=== PATIENT | female | born 1980 | race Caucasian/White ===

== ENCOUNTER 2016-11-30 08:03 | Emergency (ER) | payer MEDICAID ==
[~2016-11-30] VITALS: Ht 172.7 cm; Wt 68.2 kg
[~2016-11-30 08:03] MED LIST: CITA20TA9 PO; RISP2TAB76 PO
[2016-11-30] MEDS ORDERED: LORazepam 1 MG TABLET PO ONE (08:30)
[2016-11-30] MEDS ORDERED: DiphenhydrAMINE HCL 25 MG CAPSULE PO ONE (08:30)
[2016-11-30] MEDS ORDERED: HALOPERIDOL 5 MG TABLET PO ONE (08:30)
[2016-11-30 08:33] VITALS: BP 122/95
== END 2016-11-30 08:56 | disposition home or self-care (01) ==
LOC: EMS 08:05
DX: F20.9 Schizophrenia, unspecified (principal); F31.9 Bipolar disorder, unspecified; Z88.0 Allergy status to penicillin
CPT/HCPCS: 99284

== ENCOUNTER 2016-12-31 14:44 | Emergency (ER) | payer MEDICAID | END 2016-12-31 16:20 | disposition left against medical advice (07) | LOC: EMS 14:45 | DX: F41.9 Anxiety disorder, unspecified (principal); Z53.21 Procedure and treatment not carried out due to patient leaving prior to being seen by health care provider ==

== ENCOUNTER 2017-01-23 06:36 | Emergency (ER) | payer MEDICAID ==
[~2017-01-23] VITALS: Ht 160 cm; Wt 68.2 kg
[2017-01-23 07:36] LABS: APPEARANCE,URINE CLEAR (CLEAR); GLUCOSE, URINE (UA) NEGATIVE (NEGATIVE); KETONES,URINE NEGATIVE (NEGATIVE); LEUKOCYTE ESTERASE ,URINE NEGATIVE (NEGATIVE); OCCULT BLOOD,URINE TRACE (NEGATIVE); PH,URINE 5.5 (5.0-8.0); PROTEIN,URINE NEGATIVE (NEGATIVE)
[2017-01-23 07:46] LABS: ADD UA MICROSCOPIC YES; RBC,URINE 0-2 /HPF (0-2); WBC,URINE None Seen /HPF (0-5)
[2017-01-23] MEDS ORDERED: RisperiDONE 1 MG TABLET PO ONE (08:15)
[2017-01-23 09:14] VITALS: BP 131/82
== END 2017-01-23 09:16 | disposition home or self-care (01) ==
LOC: EMS 06:37
DX: F25.9 Schizoaffective disorder, unspecified (principal); Z88.0 Allergy status to penicillin
CPT/HCPCS: 99284

== ENCOUNTER 2017-04-04 11:57 | Emergency (ER) | payer MEDICAID ==
[~2017-04-04] VITALS: Ht 172.7 cm; Wt 113.0 kg
[~2017-04-04 11:57] MED LIST changes: +SIMV-259 PO
[2017-04-04 14:00] VITALS: BP 114/82
[2017-04-04] MEDS ORDERED: LORazepam 2 MG TABLET PO ONE (14:15)
[2017-04-04] MEDS ORDERED: RisperiDONE 1 MG TABLET PO ONE (14:30)
== END 2017-04-04 14:42 | disposition home or self-care (01) ==
LOC: EMS 11:59
DX: F20.0 Paranoid schizophrenia (principal); F31.9 Bipolar disorder, unspecified; Z88.0 Allergy status to penicillin
CPT/HCPCS: 99284

== ENCOUNTER 2017-04-06 22:00 | Emergency (ER) | payer MEDICAID ==
[~2017-04-06] VITALS: Ht 172.7 cm; Wt 113.6 kg
[2017-04-06 22:43] LABS: BASOPHILS % (AUTO) 0.3 % (0.0-2.0); EOSINOPHILS % (AUTO) 0.5 % (1.0-6.0); HEMATOCRIT 38.1 % (36-46); HEMOGLOBIN 12.9 g/dL (12.0-16.0); LYMPHOCYTES # (AUTO) 2.2 K/uL (1.0-4.8); LYMPHOCYTES % (AUTO) 28.6 % (22.0-44.0); MEAN CORPUSCULAR HEMOGLOBIN 31.4 pg (26.0-34.0); MEAN CORPUSCULAR VOLUME 92 fL (80-100); MONOCYTES # (AUTO) 0.5 K/uL (0.1-1.0); MONOCYTES % (AUTO) 6.7 % (2.0-9.0); NEUTROPHILS # (AUTO) 4.9 K/uL (1.8-7.7); NEUTROPHILS % (AUTO) 63.9 % (40.0-70.0); PLATELET COUNT (AUTO) 317 K/uL (150-450); RED BLOOD CELL COUNT(AUTO) 4.12 MIL/uL (4.00-5.20); WHITE BLOOD COUNT (AUTO) 7.6 K/uL (4.5-11.0)
[2017-04-06 22:52] LABS: ANION GAP 11 mmol/L (8-16); CALCIUM, TOTAL 9.1 mg/dL (8.8-10.5); CARBON DIOXIDE 24 mmol/L (22-29); CHLORIDE 102 mmol/L (98-107); CREATININE 0.95 mg/dL (0.60-1.30); GLOMERULAR FILTR. RATE CALC > 60 mL/min (>60); POTASSIUM 3.8 mmol/L (3.5-5.1); SODIUM SERUM 137 mmol/L (136-145); UREA NITROGEN, BLOOD 10 mg/dL (7-18)
[2017-04-06 22:57] LABS: ALANINE AMINOTRANSFERASE 22 U/L (12-78); ALBUMIN 3.6 g/dL (3.4-5.0); ASPARTATE AMINOTRANSFERASE 16 U/L (15-37); BILIRUBIN,TOTAL 0.3 mg/dL (0.1-1.0); TOTAL PROTEIN, SERUM 7.7 g/dL (6.4-8.2)
[2017-04-06] MEDS ORDERED: LORazepam 2 MG TABLET PO ONE (23:00)
[2017-04-06 23:05] VITALS: BP 129/87
== END 2017-04-06 23:13 | disposition home or self-care (01) ==
LOC: EMS 22:02
DX: F25.9 Schizoaffective disorder, unspecified (principal); F31.9 Bipolar disorder, unspecified; Z88.0 Allergy status to penicillin
CPT/HCPCS: 36415; 80053; 84703; 85025; 99284; G0480; 99285

== ENCOUNTER 2017-04-13 11:34 | Inpatient (IN) | payer MEDICAID, OTHER ==
[~2017-04-13] VITALS: Ht 172.7 cm; Wt 113.6 kg
[2017-04-13] MEDS ORDERED: ZOLPIDEM TARTRATE 10 MG TABLET PO PRN (12:30)
[2017-04-13 12:49] LABS: BASOPHILS % (AUTO) 0.3 % (0.0-2.0); EOSINOPHILS % (AUTO) 0.4 % (1.0-6.0); HEMATOCRIT 40.7 % (36-46); HEMOGLOBIN 13.6 g/dL (12.0-16.0); LYMPHOCYTES # (AUTO) 2.5 K/uL (1.0-4.8); LYMPHOCYTES % (AUTO) 25.5 % (22.0-44.0); MEAN CORPUSCULAR HEMOGLOBIN 31.1 pg (26.0-34.0); MEAN CORPUSCULAR HGB CONC 33.4 G/dL (31.0-37.0); MEAN CORPUSCULAR VOLUME 93 fL (80-100); MONOCYTES # (AUTO) 0.5 K/uL (0.1-1.0); MONOCYTES % (AUTO) 4.6 % (2.0-9.0); NEUTROPHILS # (AUTO) 6.9 K/uL (1.8-7.7); NEUTROPHILS % (AUTO) 69.2 % (40.0-70.0); PLATELET COUNT (AUTO) 339 K/uL (150-450); RED BLOOD CELL COUNT(AUTO) 4.36 MIL/uL (4.00-5.20); RED CELL DISTRIBUTION WIDTH 13.8 % (11.5-14.5)
[2017-04-13] MEDS ORDERED: DiphenhydrAMINE HCL 50 MG/ML VIAL IM ONE (13:00)
[2017-04-13] MEDS ORDERED: LORazepam 2 MG/ML VIAL IM ONE (13:00)
[2017-04-13] MEDS ORDERED: HALOPERIDOL LACTATE 5 MG/ML VIAL IM ONE (13:00)
[2017-04-13 13:07] LABS: ALANINE AMINOTRANSFERASE 24 U/L (12-78); ALBUMIN 4.2 g/dL (3.4-5.0); ANION GAP 14 mmol/L (8-16); ASPARTATE AMINOTRANSFERASE 20 U/L (15-37); BILIRUBIN,TOTAL 0.5 mg/dL (0.1-1.0); CALCIUM, TOTAL 9.5 mg/dL (8.8-10.5); CARBON DIOXIDE 22 mmol/L (22-29); CHLORIDE 99 mmol/L (98-107); CREATININE 0.93 mg/dL (0.60-1.30); GLOMERULAR FILTR. RATE CALC > 60 mL/min (>60); POTASSIUM 4.1 mmol/L (3.5-5.1); SODIUM SERUM 135 mmol/L (136-145); TOTAL PROTEIN, SERUM 8.1 g/dL (6.4-8.2); UREA NITROGEN, BLOOD 10 mg/dL (7-18)
[2017-04-13 16:19] VITALS: BP 111/69
[2017-04-14 06:19] VITALS: BP 98/58
[2017-04-14 08:15] VITALS: BP 97/57
[2017-04-14 08:47] LABS: CHOL/HDL RATIO 2.4 (3.9-5.7)
[2017-04-14] MEDS ORDERED: ALBUTEROL SULFATE HFA 90 MCG/PUFF 8 GM INHALER IH PRN (10:00)
[2017-04-14] MEDS ORDERED: PETROLATUM,WHITE 71 GM JELLY TP PRN (10:00)
[2017-04-14] MEDS ORDERED: MAG HYDROX/AL HYDROX/SIMETH ES 30 ML SUSPENSION UDCUP PO PRN (10:00)
[2017-04-14] MEDS ORDERED: BENZOCAINE/MENTHOL LOZENGE MM PRN (10:00)
[2017-04-14] MEDS ORDERED: ACETAMINOPHEN 325 MG TABLET PO PRN (10:00)
[2017-04-14] MEDS ORDERED: BACITRACIN 28.4 GM OINTMENT TP PRN (10:00)
[2017-04-14] MEDS ORDERED: IBUPROFEN 600 MG TABLET PO PRN (10:00)
[2017-04-14] MEDS ORDERED: LOPERAMIDE HCL 2 MG CAPSULE PO PRN (10:00)
[2017-04-14] MEDS ORDERED: CloNIDine HCL 0.1 MG TABLET PO PRN (10:00)
[2017-04-14] MEDS ORDERED: MAGNESIUM HYDROXIDE SUSPENSION 30 ML UDCUP PO PRN (10:00)
[2017-04-14] MEDS ORDERED: ONDANSETRON HCL 4 MG TABLET PO PRN (10:00)
[2017-04-14 16:00] VITALS: BP 99/68
[2017-04-14] MEDS: LORazepam 2 MG TABLET PO PRN (19:01)
[2017-04-14] MEDS: HALOPERIDOL 5 MG TABLET PO PRN (19:01)
[2017-04-14] MEDS: RisperiDONE 2 MG TABLET PO SCH (20:37)
[2017-04-15 06:45] VITALS: BP 103/61
[2017-04-15 09:14] VITALS: BP 106/67
[2017-04-15] MEDS: HALOPERIDOL 5 MG TABLET PO PRN ×2 (11:29→15:33)
[2017-04-15] MEDS: LORazepam 2 MG TABLET PO PRN (15:33)
[2017-04-15 16:00] VITALS: BP 108/62
[2017-04-15] MEDS: RisperiDONE 2 MG TABLET PO SCH (20:44)
[2017-04-16 06:13] VITALS: BP 113/64
[2017-04-16 08:11] VITALS: BP 101/52
[2017-04-16] MEDS: HALOPERIDOL 5 MG TABLET PO PRN (09:47)
== END 2017-04-16 13:04 | disposition home or self-care (01) | DRG 750 ==
LOC: EMS 11:35 → B2S 12:39
PROVIDERS: ADMIT Psychiatry & Neurology Psychiatry; ATTEND Psychiatry & Neurology Psychiatry
DX: F25.9 Schizoaffective disorder, unspecified (principal); E87.1 Hypo-osmolality and hyponatremia; R45.851 Suicidal ideations; E78.5 Hyperlipidemia, unspecified; F15.10 Other stimulant abuse, uncomplicated; F12.90 Cannabis use, unspecified, uncomplicated; E66.9 Obesity, unspecified; G47.00 Insomnia, unspecified; Z88.0 Allergy status to penicillin; Z68.38 Body mass index [BMI] 38.0-38.9, adult
CPT/HCPCS: 87081; 99285; G0480; J1200; J1630; J2060

== ENCOUNTER 2017-07-20 02:31 | Inpatient (IN) | payer MEDICAID, OTHER ==
[~2017-07-20] VITALS: Ht 175.3 cm; Wt 105.6 kg
[~2017-07-20 02:31] MED LIST changes: -CITA20TA9 PO; -SIMV-259 PO
[2017-07-20] MEDS ORDERED: LORA1TAB3 PO (02:37)
[2017-07-20] MEDS ORDERED: HALOPERIDOL 1 MG TABLET PO ONE (03:00)
[2017-07-20] MEDS ORDERED: BENZTROPINE MESYLATE 1 MG TABLET PO ONE (03:00)
[2017-07-20 03:03] LABS: BASOPHILS % (AUTO) 0.8 % (0.0-2.0); EOSINOPHILS % (AUTO) 0.2 % (1.0-6.0); HEMOGLOBIN 13.3 g/dL (12.0-16.0); LYMPHOCYTES % (AUTO) 29.4 % (22.0-44.0); MEAN CORPUSCULAR HEMOGLOBIN 31.4 pg (26.0-34.0); MEAN CORPUSCULAR HGB CONC 34.1 G/dL (31.0-37.0); MEAN CORPUSCULAR VOLUME 92 fL (80-100); MONOCYTES # (AUTO) 0.2 K/uL (0.1-1.0); MONOCYTES % (AUTO) 3.7 % (2.0-9.0); NEUTROPHILS # (AUTO) 4.4 K/uL (1.8-7.7); NEUTROPHILS % (AUTO) 65.9 % (40.0-70.0); PLATELET COUNT (AUTO) 319 K/uL (150-450); RED BLOOD CELL COUNT(AUTO) 4.23 MIL/uL (4.00-5.20); RED CELL DISTRIBUTION WIDTH 14.9 % (11.5-14.5); WHITE BLOOD COUNT (AUTO) 6.6 K/uL (4.5-11.0)
[2017-07-20 03:12] LABS: ANION GAP 9 mmol/L (8-16); CALCIUM, TOTAL 9.2 mg/dL (8.8-10.5); CARBON DIOXIDE 24 mmol/L (22-29); CHLORIDE 101 mmol/L (98-107); CREATININE 0.87 mg/dL (0.60-1.30); GLOMERULAR FILTR. RATE CALC > 60 mL/min (>60); SODIUM SERUM 134 mmol/L (136-145); UREA NITROGEN, BLOOD 12 mg/dL (7-18)
[2017-07-20 03:19] LABS: ALANINE AMINOTRANSFERASE 21 U/L (12-78); ALBUMIN 3.7 g/dL (3.4-5.0); ASPARTATE AMINOTRANSFERASE 15 U/L (15-37); BILIRUBIN,TOTAL 0.2 mg/dL (0.1-1.0); TOTAL PROTEIN, SERUM 7.3 g/dL (6.4-8.2)
[2017-07-20] MEDS ORDERED: HALOPERIDOL LACTATE 5 MG/ML VIAL IM ONE (04:45)
[2017-07-20] MEDS ORDERED: DiphenhydrAMINE HCL 50 MG/ML VIAL IM ONE (04:45)
[2017-07-20] MEDS ORDERED: LORazepam 2 MG/ML VIAL IM ONE (04:45)
[2017-07-20] MEDS ORDERED: ZOLPIDEM TARTRATE 10 MG TABLET PO PRN (08:30)
[2017-07-20] MEDS ORDERED: PNEUMOCOCCAL VACCINE POLYVALENT 0.5 ML VIAL [PPSV23] IM ONE (11:00)
[2017-07-20] MEDS ORDERED: INFLUENZA VIRUS VACCINE QVS 2017-18 (3YR+)/PF 60 MCG/0.5 ML SYRINGE IM ONE (11:00)
[2017-07-20 11:05] VITALS: BP 113/62
[2017-07-20 17:15] VITALS: BP 132/74
[2017-07-20] MEDS ORDERED: IBUPROFEN 400 MG TABLET PO PRN (20:15)
[2017-07-20] MEDS ORDERED: ACETAMINOPHEN 325 MG TABLET PO PRN (20:15)
[2017-07-20] MEDS: RisperiDONE 2 MG TABLET PO SCH (20:40)
[2017-07-21 00:35] VITALS: BP 107/69
[2017-07-21] MEDS: HALOPERIDOL 5 MG TABLET PO PRN ×2 (00:36→11:31)
[2017-07-21 10:16] VITALS: BP 106/59
[2017-07-21] MEDS: LORazepam 2 MG TABLET PO PRN (11:31)
[2017-07-21 17:51] VITALS: BP 98/55
[2017-07-21] MEDS: RisperiDONE 2 MG TABLET PO SCH (21:14)
[2017-07-22 09:08] VITALS: BP 87/56
[2017-07-22] MEDS: LORazepam 2 MG TABLET PO PRN (11:30)
== END 2017-07-22 13:45 | disposition home or self-care (01) | DRG 750 ==
LOC: EMS 02:33 → 3EI 10:42
PROVIDERS: ADMIT Psychiatry & Neurology Psychiatry; ATTEND Psychiatry & Neurology Psychiatry
DX: F25.9 Schizoaffective disorder, unspecified (principal); R45.851 Suicidal ideations; E87.1 Hypo-osmolality and hyponatremia; M41.9 Scoliosis, unspecified; F41.9 Anxiety disorder, unspecified; F32.9 Major depressive disorder, single episode, unspecified; Z88.0 Allergy status to penicillin; Z79.899 Other long term (current) drug therapy
CPT/HCPCS: 96372; 99285; G0480; J1200; J1630; J2060

== ENCOUNTER 2017-10-15 15:30 | Emergency (ER) | payer MEDICAID ==
[~2017-10-15] VITALS: Ht 175.3 cm; Wt 90.9 kg
[2017-10-15] MEDS ORDERED: HALO5 PO (17:10)
[2017-10-15] MEDS ORDERED: LORA0.5T2 PO (17:10)
[2017-10-15 17:14] VITALS: BP 118/73
[2017-10-15 17:20] LABS: BASOPHILS % (AUTO) 0.6 % (0.0-2.0); EOSINOPHILS % (AUTO) 0.6 % (1.0-6.0); HEMATOCRIT 38.8 % (36-46); LYMPHOCYTES # (AUTO) 1.9 K/uL (1.0-4.8); LYMPHOCYTES % (AUTO) 21.1 % (22.0-44.0); MEAN CORPUSCULAR HEMOGLOBIN 30.9 pg (26.0-34.0); MEAN CORPUSCULAR HGB CONC 33.5 G/dL (31.0-37.0); MEAN CORPUSCULAR VOLUME 92 fL (80-100); MONOCYTES # (AUTO) 0.5 K/uL (0.1-1.0); MONOCYTES % (AUTO) 4.9 % (2.0-9.0); NEUTROPHILS # (AUTO) 6.7 K/uL (1.8-7.7); NEUTROPHILS % (AUTO) 72.8 % (40.0-70.0); PLATELET COUNT (AUTO) 321 K/uL (150-450); RED BLOOD CELL COUNT(AUTO) 4.19 MIL/uL (4.00-5.20); RED CELL DISTRIBUTION WIDTH 14.9 % (11.5-14.5)
[2017-10-15 17:27] LABS: ANION GAP 8 mmol/L (8-16); CALCIUM, TOTAL 8.8 mg/dL (8.8-10.5); CARBON DIOXIDE 26 mmol/L (22-29); CHLORIDE 105 mmol/L (98-107); CREATININE 0.94 mg/dL (0.60-1.30); GLOMERULAR FILTR. RATE CALC > 60 mL/min (>60); GLUCOSE,RANDOM 106 mg/dL (70-110); POTASSIUM 3.9 mmol/L (3.5-5.1); SODIUM SERUM 139 mmol/L (136-145); UREA NITROGEN, BLOOD 17 mg/dL (7-18)
[2017-10-15 17:33] LABS: ALANINE AMINOTRANSFERASE 22 U/L (12-78); ALBUMIN 3.5 g/dL (3.4-5.0); ALKALINE PHOSPHATASE 81 U/L (46-116); ASPARTATE AMINOTRANSFERASE 21 U/L (15-37); BILIRUBIN,TOTAL 0.2 mg/dL (0.1-1.0); TOTAL PROTEIN, SERUM 7.3 g/dL (6.4-8.2)
[2017-10-15] MEDS ORDERED: HALOPERIDOL 5 MG TABLET PO ONE (18:30)
[2017-10-15] MEDS ORDERED: LORazepam 1 MG TABLET PO ONE (18:30)
== END 2017-10-15 19:16 | disposition home or self-care (01) ==
LOC: EMS 15:33
DX: F20.9 Schizophrenia, unspecified (principal); F41.9 Anxiety disorder, unspecified; Z88.0 Allergy status to penicillin
CPT/HCPCS: 36415; 80053; 84703; 85025; 99284; G0480

== ENCOUNTER 2017-10-21 12:48 | Inpatient (IN) | payer MEDICAID, OTHER ==
[~2017-10-21] VITALS: Ht 175.3 cm; Wt 106.1 kg
[~2017-10-21 12:48] MED LIST changes: +HALO5 PO; +LORA0.5T2 PO
[2017-10-21] MEDS ORDERED: HALOPERIDOL 5 MG TABLET PO ONE (14:30)
[2017-10-21] MEDS ORDERED: LORazepam 2 MG TABLET PO ONE (14:30)
[2017-10-21 14:38] LABS: AMPHET/METH SCREEN,URINE POSITIVE (NEGATIVE); BARBITURATE SCREEN, URINE NEGATIVE (NEGATIVE); BENZODIAZEPINES SCREEN,URINE NEGATIVE (NEGATIVE); CANNABINOID SCREEN,URINE POSITIVE (NEGATIVE); COCAINE SCREEN,URINE NEGATIVE (NEGATIVE); METHADONE SCREEN, URINE NEGATIVE (NEGATIVE); OPIATE SCREEN,URINE NEGATIVE (NEGATIVE)
[2017-10-21 14:40] LABS: PHENCYCLIDINE SCREEN,URINE NEGATIVE (NEGATIVE)
[2017-10-21] MEDS ORDERED: HALOPERIDOL 5 MG TABLET PO PRN (14:45)
[2017-10-21] MEDS ORDERED: ZOLPIDEM TARTRATE 10 MG TABLET PO PRN (14:45)
[2017-10-21 15:06] LABS: BASOPHILS % (AUTO) 0.5 % (0.0-2.0); EOSINOPHILS % (AUTO) 1.5 % (1.0-6.0); HEMATOCRIT 42.6 % (36-46); HEMOGLOBIN 14.4 g/dL (12.0-16.0); LYMPHOCYTES # (AUTO) 2.9 K/uL (1.0-4.8); LYMPHOCYTES % (AUTO) 38.5 % (22.0-44.0); MEAN CORPUSCULAR HEMOGLOBIN 31.4 pg (26.0-34.0); MEAN CORPUSCULAR HGB CONC 33.8 G/dL (31.0-37.0); MEAN CORPUSCULAR VOLUME 93 fL (80-100); MONOCYTES # (AUTO) 0.4 K/uL (0.1-1.0); MONOCYTES % (AUTO) 5.4 % (2.0-9.0); NEUTROPHILS % (AUTO) 54.1 % (40.0-70.0); PLATELET COUNT (AUTO) 333 K/uL (150-450); RED BLOOD CELL COUNT(AUTO) 4.59 MIL/uL (4.00-5.20); RED CELL DISTRIBUTION WIDTH 14.7 % (11.5-14.5)
[2017-10-21 15:14] LABS: ANION GAP 8 mmol/L (8-16); CALCIUM, TOTAL 9.2 mg/dL (8.8-10.5); CARBON DIOXIDE 26 mmol/L (22-29); CHLORIDE 102 mmol/L (98-107); CREATININE 0.65 mg/dL (0.60-1.30); GLOMERULAR FILTR. RATE CALC > 60 mL/min (>60); GLUCOSE,RANDOM 87 mg/dL (70-110); POTASSIUM 3.9 mmol/L (3.5-5.1); SODIUM SERUM 136 mmol/L (136-145); UREA NITROGEN, BLOOD 10 mg/dL (7-18)
[2017-10-21 15:21] LABS: ALANINE AMINOTRANSFERASE 23 U/L (12-78); ALBUMIN 3.6 g/dL (3.4-5.0); ALKALINE PHOSPHATASE 80 U/L (46-116); ASPARTATE AMINOTRANSFERASE 22 U/L (15-37); BILIRUBIN,TOTAL 0.3 mg/dL (0.1-1.0); TOTAL PROTEIN, SERUM 7.5 g/dL (6.4-8.2)
[2017-10-21 16:32] LABS: THYROID STIMULATING HORMONE 1.05 uIU/mL (0.36-3.74)
[2017-10-21 17:27] VITALS: BP 114/78
[2017-10-21] MEDS: RisperiDONE 2 MG TABLET PO SCH (20:39)
[2017-10-22] MEDS ORDERED: PNEUMOCOCCAL VACCINE POLYVALENT 0.5 ML VIAL [PPSV23] IM ONE (06:15)
[2017-10-22 06:24] VITALS: BP 116/71
[2017-10-22] MEDS ORDERED: INFLUENZA VIRUS VACCINE QVS 2017-18 (3YR+)/PF 60 MCG/0.5 ML SYRINGE IM ONE (07:00)
[2017-10-22 08:24] VITALS: BP 105/60
[2017-10-22] MEDS: NICOTINE 7 MG/24 HOUR PATCH TD SCH (08:33)
[2017-10-22] MEDS: LORazepam 2 MG TABLET PO PRN ×2 (10:14→20:11)
[2017-10-22 16:08] VITALS: BP 105/62
[2017-10-22] MEDS: RisperiDONE 2 MG TABLET PO SCH (20:07)
[2017-10-23 01:08] VITALS: BP 103/61
[2017-10-23] MEDS: NICOTINE 7 MG/24 HOUR PATCH TD SCH (08:25)
[2017-10-23 08:28] VITALS: BP 118/62
[2017-10-23] MEDS: LORazepam 2 MG TABLET PO PRN (15:39)
[2017-10-23 16:11] VITALS: BP 108/67
[2017-10-23] MEDS: RisperiDONE 2 MG TABLET PO SCH (20:06)
[2017-10-24 06:01] VITALS: BP 114/65
[2017-10-24] MEDS: NICOTINE 7 MG/24 HOUR PATCH TD SCH (08:17)
[2017-10-24 08:25] VITALS: BP 94/60
[2017-10-24] MEDS: LORazepam 2 MG TABLET PO PRN (08:34)
[2017-10-24 08:40] VITALS: BP 113/72
[2017-10-24] MEDS ORDERED: RisperiDONE MICROSPHERES 50 MG/2 ML SYRINGE IM SCH (09:00)
== END 2017-10-24 13:32 | disposition home or self-care (01) | DRG 750 ==
LOC: EEVIPCON 12:50 → EMS 12:50 → B2S 15:08
PROVIDERS: ADMIT Psychiatry & Neurology Psychiatry; ATTEND Psychiatry & Neurology Psychiatry
PROC: 3E0234Z Introduction of Serum, Toxoid and Vaccine into Muscle, Percutaneous Approach (ICD-10-PCS; principal; 2017-10-22)
DX: F20.0 Paranoid schizophrenia (principal); M41.9 Scoliosis, unspecified; R45.851 Suicidal ideations; R00.0 Tachycardia, unspecified; F19.10 Other psychoactive substance abuse, uncomplicated; S80.11XA Contusion of right lower leg, initial encounter; X58.XXXA Exposure to other specified factors, initial encounter; Y93.89 Activity, other specified; Z88.0 Allergy status to penicillin; Z79.899 Other long term (current) drug therapy; Y92.89 Other specified places as the place of occurrence of the external cause; Z23 Encounter for immunization
CPT/HCPCS: 84439; 84443; 99285; G0480; J2794

== ENCOUNTER 2017-11-05 18:17 | Inpatient (IN) | payer MEDICAID, OTHER ==
[~2017-11-05] VITALS: Ht 175.3 cm; Wt 107.5 kg
[~2017-11-05 18:17] MED LIST changes: -HALO5 PO; -LORA0.5T2 PO
[2017-11-05 18:49] LABS: EOSINOPHILS % (AUTO) 0.8 % (1.0-6.0); HEMATOCRIT 40.7 % (36-46); LYMPHOCYTES # (AUTO) 2.4 K/uL (1.0-4.8); LYMPHOCYTES % (AUTO) 28.5 % (22.0-44.0); MEAN CORPUSCULAR HEMOGLOBIN 31.7 pg (26.0-34.0); MEAN CORPUSCULAR HGB CONC 34.3 G/dL (31.0-37.0); MEAN CORPUSCULAR VOLUME 93 fL (80-100); MONOCYTES # (AUTO) 0.4 K/uL (0.1-1.0); MONOCYTES % (AUTO) 5.1 % (2.0-9.0); NEUTROPHILS # (AUTO) 5.4 K/uL (1.8-7.7); NEUTROPHILS % (AUTO) 64.6 % (40.0-70.0); PLATELET COUNT (AUTO) 302 K/uL (150-450); RED CELL DISTRIBUTION WIDTH 14.7 % (11.5-14.5)
[2017-11-05 19:00] LABS: ANION GAP 11 mmol/L (8-16); CALCIUM, TOTAL 8.7 mg/dL (8.8-10.5); CARBON DIOXIDE 25 mmol/L (22-29); CHLORIDE 101 mmol/L (98-107); CREATININE 0.75 mg/dL (0.60-1.30); GLOMERULAR FILTR. RATE CALC > 60 mL/min (>60); GLUCOSE,RANDOM 126 mg/dL (70-110); POTASSIUM 3.9 mmol/L (3.5-5.1); SODIUM SERUM 137 mmol/L (136-145); UREA NITROGEN, BLOOD 10 mg/dL (7-18)
[2017-11-05 19:06] LABS: ALANINE AMINOTRANSFERASE 23 U/L (12-78); ALBUMIN 3.6 g/dL (3.4-5.0); ALKALINE PHOSPHATASE 108 U/L (46-116); ASPARTATE AMINOTRANSFERASE 18 U/L (15-37); BILIRUBIN,TOTAL 0.2 mg/dL (0.1-1.0); TOTAL PROTEIN, SERUM 7.4 g/dL (6.4-8.2)
[2017-11-05] MEDS ORDERED: HALOPERIDOL LACTATE 5 MG/ML VIAL IM ONE (19:15)
[2017-11-05] MEDS ORDERED: LORazepam 2 MG/ML VIAL IM ONE (19:15)
[2017-11-05] MEDS ORDERED: DiphenhydrAMINE HCL 50 MG/ML VIAL IM ONE (19:15)
[2017-11-05 19:34] LABS: AMPHET/METH SCREEN,URINE POSITIVE (NEGATIVE); BARBITURATE SCREEN, URINE NEGATIVE (NEGATIVE); BENZODIAZEPINES SCREEN,URINE NEGATIVE (NEGATIVE); CANNABINOID SCREEN,URINE POSITIVE (NEGATIVE); COCAINE SCREEN,URINE NEGATIVE (NEGATIVE); METHADONE SCREEN, URINE NEGATIVE (NEGATIVE); OPIATE SCREEN,URINE NEGATIVE (NEGATIVE); PHENCYCLIDINE SCREEN,URINE NEGATIVE (NEGATIVE)
[2017-11-05] MEDS ORDERED: ZOLPIDEM TARTRATE 10 MG TABLET PO PRN (19:45)
[2017-11-05 19:59] LABS: BILIRUBIN,URINE NEGATIVE (NEGATIVE); GLUCOSE, URINE (UA) NEGATIVE (NEGATIVE); KETONES,URINE NEGATIVE (NEGATIVE); LEUKOCYTE ESTERASE ,URINE NEGATIVE (NEGATIVE); NITRATE,URINE NEGATIVE (NEGATIVE); OCCULT BLOOD,URINE NEGATIVE (NEGATIVE); PROTEIN,URINE NEGATIVE (NEGATIVE); UROBILINOGEN,URINE 0.2 mg/dL (<=1.0)
[2017-11-05 20:09] LABS: APPEARANCE,URINE HAZY (CLEAR)
[2017-11-05 20:45] LABS: THYROID STIMULATING HORMONE 0.77 uIU/mL (0.36-3.74)
[2017-11-05 21:36] VITALS: BP 119/57
[2017-11-05] MEDS ORDERED: INFLUENZA VIRUS VACCINE QVS 2017-18 (3YR+)/PF 60 MCG/0.5 ML SYRINGE IM ONE (22:15)
[2017-11-06 08:42] VITALS: BP 121/73
[2017-11-06] MEDS: LORazepam 2 MG TABLET PO PRN (13:32)
[2017-11-06 16:15] VITALS: BP 109/69
[2017-11-06] MEDS: HALOPERIDOL 5 MG TABLET PO PRN (17:29)
[2017-11-06] MEDS: RisperiDONE 2 MG TABLET PO SCH (20:55)
[2017-11-07 07:12] VITALS: BP 110/72
[2017-11-07] MEDS: LORazepam 2 MG TABLET PO PRN ×2 (12:19→17:11)
[2017-11-07 16:21] VITALS: BP 105/68
[2017-11-07] MEDS: HALOPERIDOL 5 MG TABLET PO PRN (17:11)
[2017-11-07] MEDS: RisperiDONE 2 MG TABLET PO SCH (20:29)
[2017-11-08 05:14] VITALS: BP 101/60
[2017-11-08] MEDS ORDERED: RISP2 PO (12:19)
== END 2017-11-08 13:25 | disposition home or self-care (01) | DRG 750 ==
LOC: EMS 18:19 → B3A 20:21
PROVIDERS: ADMIT Psychiatry & Neurology Psychiatry; ATTEND Psychiatry & Neurology Psychiatry
DX: F25.9 Schizoaffective disorder, unspecified (principal); M41.9 Scoliosis, unspecified; R45.851 Suicidal ideations; G89.29 Other chronic pain; M54.9 Dorsalgia, unspecified; F19.10 Other psychoactive substance abuse, uncomplicated; R00.0 Tachycardia, unspecified; Z88.0 Allergy status to penicillin; Z79.899 Other long term (current) drug therapy; Z71.51 Drug abuse counseling and surveillance of drug abuser
CPT/HCPCS: 84443; 87081; 90471; 96372; 99285; G0480; J1200; J1630; J2060

== ENCOUNTER 2018-01-12 03:53 | Emergency (ER) | payer MEDICAID, OTHER ==
[~2018-01-12] VITALS: Ht 170.2 cm; Wt 84.1 kg
[2018-01-12] MEDS ORDERED: HALO5 PO (03:56)
[2018-01-12] MEDS ORDERED: LORA2TAB2 PO (04:06)
[2018-01-12] MEDS ORDERED: HALO10 PO (04:06)
[2018-01-12] MEDS ORDERED: HALOPERIDOL 5 MG TABLET PO ONE (04:15)
[2018-01-12] MEDS ORDERED: DiphenhydrAMINE HCL 25 MG/10 ML ELIXIR UDCUP PO ONE (04:15)
[2018-01-12] MEDS ORDERED: LORazepam 2 MG TABLET PO ONE (04:15)
[2018-01-12 04:17] LABS: BASOPHILS % (AUTO) 1.3 % (0.0-2.0); EOSINOPHILS % (AUTO) 1.2 % (1.0-6.0); HEMATOCRIT 41.6 % (36-46); HEMOGLOBIN 14.2 g/dL (12.0-16.0); LYMPHOCYTES # (AUTO) 2.9 K/uL (1.0-4.8); LYMPHOCYTES % (AUTO) 33.3 % (22.0-44.0); MEAN CORPUSCULAR HEMOGLOBIN 31.8 pg (26.0-34.0); MEAN CORPUSCULAR HGB CONC 34.2 G/dL (31.0-37.0); MEAN CORPUSCULAR VOLUME 93 fL (80-100); MONOCYTES # (AUTO) 0.4 K/uL (0.1-1.0); MONOCYTES % (AUTO) 4.5 % (2.0-9.0); NEUTROPHILS # (AUTO) 5.2 K/uL (1.8-7.7); NEUTROPHILS % (AUTO) 59.7 % (40.0-70.0); PLATELET COUNT (AUTO) 312 K/uL (150-450); RED BLOOD CELL COUNT(AUTO) 4.48 MIL/uL (4.00-5.20); RED CELL DISTRIBUTION WIDTH 14.2 % (11.5-14.5)
[2018-01-12 04:27] LABS: ANION GAP 5 mmol/L (8-16); CALCIUM, TOTAL 8.8 mg/dL (8.8-10.5); CARBON DIOXIDE 29 mmol/L (22-29); CHLORIDE 100 mmol/L (98-107); GLOMERULAR FILTR. RATE CALC > 60 mL/min (>60); GLUCOSE,RANDOM 93 mg/dL (70-110); POTASSIUM 4.1 mmol/L (3.5-5.1); SODIUM SERUM 134 mmol/L (136-145); UREA NITROGEN, BLOOD 14 mg/dL (7-18)
[2018-01-12 04:34] LABS: ALANINE AMINOTRANSFERASE 23 U/L (12-78); ALBUMIN 3.5 g/dL (3.4-5.0); ALKALINE PHOSPHATASE 89 U/L (46-116); ASPARTATE AMINOTRANSFERASE 14 U/L (15-37); BILIRUBIN,TOTAL 0.2 mg/dL (0.1-1.0); TOTAL PROTEIN, SERUM 7.2 g/dL (6.4-8.2)
[2018-01-12 08:48] VITALS: BP 108/82
== END 2018-01-12 09:59 | disposition home or self-care (01) ==
LOC: EMS 03:53
DX: F25.9 Schizoaffective disorder, unspecified (principal); F22 Delusional disorders; F31.9 Bipolar disorder, unspecified; F17.210 Nicotine dependence, cigarettes, uncomplicated; Z91.19 Patient's noncompliance with other medical treatment and regimen; Z88.0 Allergy status to penicillin
CPT/HCPCS: 36415; 80053; 85025; 99285; G0480

== ENCOUNTER 2018-03-28 05:44 | Inpatient (IN) | payer MEDICAID, OTHER ==
[~2018-03-28] VITALS: Ht 175.3 cm; Wt 108.0 kg
[~2018-03-28 05:44] MED LIST changes: +HALO10 PO; +LORA2TAB2 PO
[2018-03-28 06:43] LABS: BASOPHILS % (AUTO) 0.5 % (0.0-2.0); EOSINOPHILS % (AUTO) 0.5 % (1.0-6.0); HEMATOCRIT 41.2 % (36-46); HEMOGLOBIN 14.4 g/dL (12.0-16.0); LYMPHOCYTES # (AUTO) 2.4 K/uL (1.0-4.8); LYMPHOCYTES % (AUTO) 23.7 % (22.0-44.0); MEAN CORPUSCULAR HEMOGLOBIN 32.5 pg (26.0-34.0); MEAN CORPUSCULAR VOLUME 93 fL (80-100); MONOCYTES # (AUTO) 0.5 K/uL (0.1-1.0); MONOCYTES % (AUTO) 5.2 % (2.0-9.0); NEUTROPHILS # (AUTO) 7.2 K/uL (1.8-7.7); NEUTROPHILS % (AUTO) 70.1 % (40.0-70.0); PLATELET COUNT (AUTO) 323 K/uL (150-450); RED BLOOD CELL COUNT(AUTO) 4.43 MIL/uL (4.00-5.20); RED CELL DISTRIBUTION WIDTH 14.9 % (11.5-14.5)
[2018-03-28 06:57] LABS: ANION GAP 12 mmol/L (8-16); CALCIUM, TOTAL 9.1 mg/dL (8.8-10.5); CARBON DIOXIDE 25 mmol/L (22-29); CHLORIDE 101 mmol/L (98-107); GLOMERULAR FILTR. RATE CALC 56 mL/min (>60); GLUCOSE,RANDOM 99 mg/dL (70-110); POTASSIUM 3.8 mmol/L (3.5-5.1); SODIUM SERUM 138 mmol/L (136-145); UREA NITROGEN, BLOOD 10 mg/dL (7-18)
[2018-03-28 07:00] LABS: ALANINE AMINOTRANSFERASE 24 U/L (12-78); ALBUMIN 3.9 g/dL (3.4-5.0); ALKALINE PHOSPHATASE 85 U/L (46-116); ASPARTATE AMINOTRANSFERASE 18 U/L (15-37); BILIRUBIN,TOTAL 0.4 mg/dL (0.1-1.0); TOTAL PROTEIN, SERUM 7.7 g/dL (6.4-8.2)
[2018-03-28 07:34] LABS: AMPHET/METH SCREEN,URINE POSITIVE (NEGATIVE); BARBITURATE SCREEN, URINE NEGATIVE (NEGATIVE); BENZODIAZEPINES SCREEN,URINE NEGATIVE (NEGATIVE); CANNABINOID SCREEN,URINE POSITIVE (NEGATIVE); COCAINE SCREEN,URINE NEGATIVE (NEGATIVE); METHADONE SCREEN, URINE NEGATIVE (NEGATIVE); OPIATE SCREEN,URINE NEGATIVE (NEGATIVE)
[2018-03-28 07:38] LABS: PHENCYCLIDINE SCREEN,URINE NEGATIVE (NEGATIVE)
[2018-03-28] MEDS ORDERED: HALOPERIDOL 5 MG TABLET PO ONE (08:00)
[2018-03-28] MEDS ORDERED: LORazepam 1 MG TABLET PO ONE (08:00)
[2018-03-28] MEDS ORDERED: ZOLPIDEM TARTRATE 10 MG TABLET PO PRN (10:45)
[2018-03-28 15:13] VITALS: BP 103/63
[2018-03-28] MEDS ORDERED: ONDANSETRON HCL 4 MG TABLET PO PRN (15:30)
[2018-03-28] MEDS ORDERED: CloNIDine HCL 0.1 MG TABLET PO PRN (15:30)
[2018-03-28] MEDS ORDERED: IBUPROFEN 400 MG TABLET PO PRN (15:30)
[2018-03-28] MEDS ORDERED: ACETAMINOPHEN 325 MG TABLET PO PRN (15:30)
[2018-03-28] MEDS ORDERED: LOPERAMIDE HCL 2 MG CAPSULE PO PRN (15:30)
[2018-03-28] MEDS ORDERED: DOCUSATE SODIUM 100 MG CAPSULE PO PRN (15:30)
[2018-03-28] MEDS ORDERED: ALBUTEROL SULFATE HFA 90 MCG/PUFF 8 GM INHALER IH PRN (15:30)
[2018-03-28] MEDS ORDERED: MAG HYDROX/AL HYDROX/SIMETH ES 30 ML SUSPENSION UDCUP PO PRN (15:30)
[2018-03-28] MEDS ORDERED: MAGNESIUM HYDROXIDE SUSPENSION 30 ML UDCUP PO PRN (15:30)
[2018-03-28] MEDS ORDERED: PETROLATUM,WHITE 71 GM JELLY TP PRN (15:30)
[2018-03-28 16:10] VITALS: BP 121/79
[2018-03-28] MEDS: HALOPERIDOL 5 MG TABLET PO PRN (16:38)
[2018-03-28] MEDS: RisperiDONE 2 MG TABLET PO SCH (20:26)
[2018-03-29 00:55] VITALS: BP 118/60
[2018-03-29] MEDS: HALOPERIDOL 5 MG TABLET PO PRN ×3 (01:27→20:49)
[2018-03-29 08:35] VITALS: BP 118/76
[2018-03-29 08:35] LABS: BASOPHILS % (AUTO) 0.5 % (0.0-2.0); EOSINOPHILS % (AUTO) 2.7 % (1.0-6.0); HEMATOCRIT 40.3 % (36-46); HEMOGLOBIN 13.8 g/dL (12.0-16.0); LYMPHOCYTES # (AUTO) 3.1 K/uL (1.0-4.8); LYMPHOCYTES % (AUTO) 47.3 % (22.0-44.0); MEAN CORPUSCULAR HEMOGLOBIN 32.2 pg (26.0-34.0); MEAN CORPUSCULAR HGB CONC 34.3 G/dL (31.0-37.0); MEAN CORPUSCULAR VOLUME 94 fL (80-100); MONOCYTES # (AUTO) 0.4 K/uL (0.1-1.0); MONOCYTES % (AUTO) 6.1 % (2.0-9.0); NEUTROPHILS # (AUTO) 2.9 K/uL (1.8-7.7); NEUTROPHILS % (AUTO) 43.4 % (40.0-70.0); PLATELET COUNT (AUTO) 285 K/uL (150-450); RED BLOOD CELL COUNT(AUTO) 4.29 MIL/uL (4.00-5.20); RED CELL DISTRIBUTION WIDTH 14.6 % (11.5-14.5)
[2018-03-29 08:55] LABS: HEMOGLOBIN A1C 5.7 % (4.5-6.2)
[2018-03-29] MEDS: NICOTINE 14 MG/24 HOUR PATCH TD SCH (09:00)
[2018-03-29 09:10] LABS: ALANINE AMINOTRANSFERASE 20 U/L (12-78); ALBUMIN 3.3 g/dL (3.4-5.0); ALKALINE PHOSPHATASE 73 U/L (46-116); ANION GAP 6 mmol/L (8-16); ASPARTATE AMINOTRANSFERASE 16 U/L (15-37); BILIRUBIN,TOTAL 0.4 mg/dL (0.1-1.0); CALCIUM, TOTAL 8.8 mg/dL (8.8-10.5); CARBON DIOXIDE 26 mmol/L (22-29); CHLORIDE 103 mmol/L (98-107); CHOL/HDL RATIO 3.9 (3.9-5.7); CHOLESTEROL 193 mg/dL (131-200); CREATININE 1.01 mg/dL (0.60-1.30); GLOMERULAR FILTR. RATE CALC > 60 mL/min (>60); GLUCOSE,RANDOM 82 mg/dL (70-110); HDL CHOLESTEROL 49 mg/dL (40-60); LDL CHOL (CALC.) 121 mg/dL (0-130); POTASSIUM 4.4 mmol/L (3.5-5.1); SODIUM SERUM 135 mmol/L (136-145); THYROID STIMULATING HORMONE 1.65 uIU/mL (0.36-3.74); TOTAL PROTEIN, SERUM 6.5 g/dL (6.4-8.2); TRIGLYCERIDES 117 mg/dL (15-150); UREA NITROGEN, BLOOD 11 mg/dL (7-18)
[2018-03-29 16:11] VITALS: BP 111/68
[2018-03-29] MEDS: RisperiDONE 2 MG TABLET PO SCH (20:29)
[2018-03-29] MEDS: LORazepam 2 MG TABLET PO PRN (20:49)
[2018-03-30 01:51] VITALS: BP 102/62
[2018-03-30 08:39] VITALS: BP 110/69
[2018-03-30] MEDS: NICOTINE 14 MG/24 HOUR PATCH TD SCH (09:00)
[2018-03-30] MEDS: RisperiDONE 3 MG TABLET PO SCH ×2 (09:05→16:02)
[2018-03-30] MEDS: LORazepam 2 MG TABLET PO PRN (16:03)
[2018-03-30 16:40] VITALS: BP 112/62
[2018-03-30] MEDS ORDERED: RISP3 PO (20:08)
== END 2018-03-30 20:45 | disposition home or self-care (01) | DRG 750 ==
LOC: EMS 05:45 → B2S 11:34
PROVIDERS: ADMIT Psychiatry & Neurology Child & Adolescent Psychiatry; ATTEND Psychiatry & Neurology Psychiatry
DX: F20.0 Paranoid schizophrenia (principal); R45.851 Suicidal ideations; E87.1 Hypo-osmolality and hyponatremia; I10 Essential (primary) hypertension; F12.90 Cannabis use, unspecified, uncomplicated; F31.9 Bipolar disorder, unspecified; G47.00 Insomnia, unspecified; G89.29 Other chronic pain; F17.210 Nicotine dependence, cigarettes, uncomplicated; Z71.51 Drug abuse counseling and surveillance of drug abuser
CPT/HCPCS: 83036; 84443; 99285; G0480

== ENCOUNTER 2018-07-21 15:26 | Emergency (ER) | payer MEDICAID, OTHER ==
[~2018-07-21] VITALS: Ht 165.1 cm; Wt 84.5 kg
[~2018-07-21 15:26] MED LIST changes: -HALO10 PO; -LORA2TAB2 PO; -RISP2TAB76 PO; +RISP3 PO
[2018-07-21] MEDS ORDERED: HALOPERIDOL LACTATE 5 MG/ML VIAL ONE (15:32)
[2018-07-21] MEDS ORDERED: DiphenhydrAMINE HCL 50 MG/ML VIAL ONE (15:32)
[2018-07-21] MEDS ORDERED: LORazepam 2 MG/ML VIAL ONE (15:32)
[2018-07-21] MEDS ORDERED: HALOPERIDOL LACTATE 5 MG/ML VIAL IM ONE (15:45)
[2018-07-21] MEDS ORDERED: DiphenhydrAMINE HCL 50 MG/ML VIAL IM ONE (15:45)
[2018-07-21] MEDS ORDERED: LORazepam 2 MG/ML VIAL IM ONE (15:45)
[2018-07-21] MEDS ORDERED: PERTUSS(ACELL),DIPH,TET VAC/PF 0.5 ML VIAL IM ONE (16:00)
[2018-07-21 16:18] LABS: BASOPHILS % (AUTO) 0.6 % (0.0-2.0); EOSINOPHILS % (AUTO) 1.2 % (1.0-6.0); HEMATOCRIT 41.4 % (36-46); HEMOGLOBIN 14.1 g/dL (12.0-16.0); LYMPHOCYTES # (AUTO) 3.2 K/uL (1.0-4.8); LYMPHOCYTES % (AUTO) 38.2 % (22.0-44.0); MEAN CORPUSCULAR HEMOGLOBIN 32.4 pg (26.0-34.0); MEAN CORPUSCULAR VOLUME 95 fL (80-100); MONOCYTES # (AUTO) 0.5 K/uL (0.1-1.0); MONOCYTES % (AUTO) 5.7 % (2.0-9.0); NEUTROPHILS # (AUTO) 4.6 K/uL (1.8-7.7); NEUTROPHILS % (AUTO) 54.3 % (40.0-70.0); PLATELET COUNT (AUTO) 320 K/uL (150-450); RED BLOOD CELL COUNT(AUTO) 4.35 MIL/uL (4.00-5.20); RED CELL DISTRIBUTION WIDTH 14.1 % (11.5-14.5)
[2018-07-21 16:26] LABS: ANION GAP 9 mmol/L (8-16); CALCIUM, TOTAL 8.2 mg/dL (8.8-10.5); CARBON DIOXIDE 27 mmol/L (22-29); CHLORIDE 101 mmol/L (98-107); GLOMERULAR FILTR. RATE CALC > 60 mL/min (>60); GLUCOSE,RANDOM 83 mg/dL (70-110); POTASSIUM 3.6 mmol/L (3.5-5.1); SODIUM SERUM 137 mmol/L (136-145); UREA NITROGEN, BLOOD 12 mg/dL (7-18)
[2018-07-21 16:32] LABS: ALANINE AMINOTRANSFERASE 33 U/L (12-78); ALBUMIN 3.7 g/dL (3.4-5.0); ALKALINE PHOSPHATASE 85 U/L (46-116); ASPARTATE AMINOTRANSFERASE 25 U/L (15-37); BILIRUBIN,TOTAL 0.2 mg/dL (0.1-1.0); TOTAL PROTEIN, SERUM 7.5 g/dL (6.4-8.2)
[2018-07-21 16:56] VITALS: BP 106/58
== END 2018-07-21 17:24 | disposition home or self-care (01) ==
LOC: EMS 15:28
DX: S01.511A Laceration without foreign body of lip, initial encounter (principal); F20.9 Schizophrenia, unspecified; F10.129 Alcohol abuse with intoxication, unspecified; F17.210 Nicotine dependence, cigarettes, uncomplicated; F12.90 Cannabis use, unspecified, uncomplicated; F31.9 Bipolar disorder, unspecified; Z88.0 Allergy status to penicillin; Z79.899 Other long term (current) drug therapy; W50.0XXA Accidental hit or strike by another person, initial encounter; Y93.89 Activity, other specified; Y92.89 Other specified places as the place of occurrence of the external cause; Y99.8 Other external cause status; Y90.6 Blood alcohol level of 120-199 mg/100 ml
CPT/HCPCS: 36415; 80053; 85025; 90471; 90715; 96372; 99284; G0480; J1200; J1630; J2060

== ENCOUNTER 2018-09-24 23:35 | Emergency (ER) | payer MEDICAID ==
[~2018-09-24 23:35] MED LIST changes: +HALO10 PO
[2018-09-25 02:11] LABS: BASOPHILS % (AUTO) 0.8 % (0.0-2.0); EOSINOPHILS % (AUTO) 2.2 % (1.0-6.0); LYMPHOCYTES # (AUTO) 3.3 K/uL (1.0-4.8); LYMPHOCYTES % (AUTO) 36.5 % (22.0-44.0); MEAN CORPUSCULAR HEMOGLOBIN 32.4 pg (26.0-34.0); MEAN CORPUSCULAR HGB CONC 34.1 G/dL (31.0-37.0); MEAN CORPUSCULAR VOLUME 95 fL (80-100); MONOCYTES # (AUTO) 0.6 K/uL (0.1-1.0); MONOCYTES % (AUTO) 6.2 % (2.0-9.0); NEUTROPHILS # (AUTO) 4.9 K/uL (1.8-7.7); NEUTROPHILS % (AUTO) 54.3 % (40.0-70.0); PLATELET COUNT (AUTO) 342 K/uL (150-450); RED BLOOD CELL COUNT(AUTO) 4.31 MIL/uL (4.00-5.20); RED CELL DISTRIBUTION WIDTH 13.7 % (11.5-14.5)
[2018-09-25 02:26] LABS: ANION GAP 6 mmol/L (8-16); CALCIUM, TOTAL 8.6 mg/dL (8.8-10.5); CARBON DIOXIDE 29 mmol/L (22-29); CHLORIDE 103 mmol/L (98-107); CREATININE 0.92 mg/dL (0.60-1.30); GLOMERULAR FILTR. RATE CALC > 60 mL/min (>60); GLUCOSE,RANDOM 98 mg/dL (70-110); POTASSIUM 4.4 mmol/L (3.5-5.1); SODIUM SERUM 138 mmol/L (136-145); UREA NITROGEN, BLOOD 18 mg/dL (7-18)
[2018-09-25 02:31] LABS: ALANINE AMINOTRANSFERASE 24 U/L (12-78); ALBUMIN 3.2 g/dL (3.4-5.0); ALKALINE PHOSPHATASE 97 U/L (46-116); ASPARTATE AMINOTRANSFERASE 19 U/L (15-37); BILIRUBIN,TOTAL 0.2 mg/dL (0.1-1.0); TOTAL PROTEIN, SERUM 6.8 g/dL (6.4-8.2)
== END 2018-09-25 02:30 | disposition left against medical advice (07) ==
LOC: EMS 23:36
DX: Z00.8 Encounter for other general examination (principal); Z53.21 Procedure and treatment not carried out due to patient leaving prior to being seen by health care provider
CPT/HCPCS: 36415; 80053; 85025; G0480

== ENCOUNTER 2019-04-03 21:09 | Inpatient (IN) | payer MEDICAID, OTHER ==
[~2019-04-03] VITALS: Ht 175.3 cm; Wt 103.5 kg
[2019-04-04 01:20] LABS: BASOPHILS % (AUTO) 0.9 % (0.0-2.0); EOSINOPHILS % (AUTO) 1.7 % (1.0-6.0); HEMOGLOBIN 13.6 g/dL (12.0-16.0); LYMPHOCYTES # (AUTO) 3.8 K/uL (1.0-4.8); LYMPHOCYTES % (AUTO) 47.2 % (22.0-44.0); MEAN CORPUSCULAR HGB CONC 32.4 G/dL (31.0-37.0); MEAN CORPUSCULAR VOLUME 99 fL (80-100); MONOCYTES # (AUTO) 0.4 K/uL (0.1-1.0); MONOCYTES % (AUTO) 5.5 % (2.0-9.0); NEUTROPHILS # (AUTO) 3.6 K/uL (1.8-7.7); NEUTROPHILS % (AUTO) 44.7 % (40.0-70.0); PLATELET COUNT (AUTO) 289 K/uL (150-450); RED BLOOD CELL COUNT(AUTO) 4.26 MIL/uL (4.00-5.20); RED CELL DISTRIBUTION WIDTH 13.6 % (11.5-14.5)
[2019-04-04 01:35] LABS: ANION GAP 11 mmol/L (8-16); CALCIUM, TOTAL 9.3 mg/dL (8.8-10.5); CARBON DIOXIDE 23 mmol/L (22-29); CHLORIDE 106 mmol/L (98-107); CREATININE 0.94 mg/dL (0.60-1.30); GLOMERULAR FILTR. RATE CALC > 60 mL/min (>60); GLUCOSE,RANDOM 93 mg/dL (70-110); SODIUM SERUM 140 mmol/L (136-145); UREA NITROGEN, BLOOD 15 mg/dL (7-18)
[2019-04-04 01:48] LABS: ALANINE AMINOTRANSFERASE 15 U/L (12-78); ALBUMIN 3.3 g/dL (3.4-5.0); ALKALINE PHOSPHATASE 75 U/L (46-116); ASPARTATE AMINOTRANSFERASE 16 U/L (15-37); BILIRUBIN,TOTAL 0.3 mg/dL (0.1-1.0); HCG,QUANTITATIVE < 1 mIU/mL (0-6); TOTAL PROTEIN, SERUM 6.7 g/dL (6.4-8.2)
[2019-04-04 10:54] VITALS: BP 104/63
[2019-04-04] MEDS ORDERED: MAGNESIUM HYDROXIDE SUSPENSION 30 ML UDCUP PO PRN (11:00)
[2019-04-04] MEDS ORDERED: MAG HYDROX/AL HYDROX/SIMETH ES 30 ML SUSPENSION UDCUP PO PRN (11:00)
[2019-04-04] MEDS ORDERED: DOCUSATE SODIUM 100 MG CAPSULE PO PRN (11:00)
[2019-04-04] MEDS ORDERED: ALBUTEROL SULFATE HFA 90 MCG/PUFF 8 GM INHALER IH PRN (11:00)
[2019-04-04] MEDS ORDERED: LOPERAMIDE HCL 2 MG CAPSULE PO PRN (11:00)
[2019-04-04] MEDS ORDERED: BACITRACIN 28.4 GM OINTMENT TP PRN (11:00)
[2019-04-04] MEDS ORDERED: CloNIDine HCL 0.1 MG TABLET PO PRN (11:00)
[2019-04-04] MEDS ORDERED: ONDANSETRON HCL 4 MG TABLET PO PRN (11:00)
[2019-04-04] MEDS ORDERED: PETROLATUM,WHITE 28 GM JELLY TP PRN (11:00)
[2019-04-04] MEDS ORDERED: ACETAMINOPHEN 325 MG TABLET PO PRN (11:00)
[2019-04-04] MEDS ORDERED: IBUPROFEN 600 MG TABLET PO PRN (11:00)
[2019-04-04] MEDS ORDERED: OMEPRAZOLE 20 MG CAPSULE PO PRN (11:00)
[2019-04-04] MEDS ORDERED: BENZOCAINE/MENTHOL LOZENGE MM PRN (11:00)
[2019-04-04 16:08] VITALS: BP 128/68
[2019-04-05 00:15] VITALS: BP 122/72
[2019-04-05] MEDS: HALOPERIDOL 5 MG TABLET PO PRN ×3 (00:21→17:56)
[2019-04-05] MEDS: LORazepam 2 MG TABLET PO PRN ×3 (00:21→17:56)
[2019-04-05 08:00] LABS: CHOL/HDL RATIO 3.7 (3.9-5.7)
[2019-04-05 16:07] VITALS: BP 128/71
[2019-04-05] MEDS: HALOPERIDOL 10 MG TABLET PO SCH (20:17)
[2019-04-06 06:23] VITALS: BP 118/66
[2019-04-06 08:02] VITALS: BP 105/58
[2019-04-06 14:20] VITALS: BP 121/68
[2019-04-06] MEDS: LORazepam 2 MG TABLET PO PRN ×2 (14:23→19:11)
[2019-04-06] MEDS: HALOPERIDOL 5 MG TABLET PO PRN ×2 (14:23→19:11)
[2019-04-06 16:05] VITALS: BP 130/61
[2019-04-06] MEDS: ZOLPIDEM TARTRATE 10 MG TABLET PO PRN (21:09)
[2019-04-06] MEDS: HALOPERIDOL 10 MG TABLET PO SCH (21:09)
[2019-04-07 06:42] VITALS: BP 99/61
[2019-04-07] MEDS: LORazepam 2 MG TABLET PO PRN (15:44)
[2019-04-07 16:02] VITALS: BP 103/58
[2019-04-07] MEDS: HALOPERIDOL 5 MG TABLET PO PRN (17:30)
[2019-04-07] MEDS: HALOPERIDOL 10 MG TABLET PO SCH (20:16)
[2019-04-07] MEDS: ZOLPIDEM TARTRATE 10 MG TABLET PO PRN (20:16)
[2019-04-08 06:36] VITALS: BP 110/64
[2019-04-08] MEDS: LORazepam 2 MG TABLET PO PRN ×3 (08:48→17:49)
[2019-04-08 13:49] VITALS: BP 110/84
[2019-04-08 16:02] VITALS: BP 108/74
[2019-04-08] MEDS: HALOPERIDOL 10 MG TABLET PO SCH (20:21)
[2019-04-08] MEDS: ZOLPIDEM TARTRATE 10 MG TABLET PO PRN (20:21)
[2019-04-09 05:39] VITALS: BP 111/67
[2019-04-09 09:58] VITALS: BP 116/70
[2019-04-09] MEDS: LORazepam 2 MG TABLET PO PRN ×2 (10:15→16:10)
[2019-04-09 16:12] VITALS: BP 100/62
[2019-04-09] MEDS: HALOPERIDOL 10 MG TABLET PO SCH (20:09)
[2019-04-09] MEDS: ZOLPIDEM TARTRATE 10 MG TABLET PO PRN (20:09)
[2019-04-10 01:59] VITALS: BP 110/72
== END 2019-04-10 14:30 | disposition home or self-care (01) | DRG 750 ==
LOC: EMS 21:13 → B3A 04-04 08:28
PROVIDERS: ADMIT Psychiatry & Neurology Psychiatry; ATTEND Psychiatry & Neurology Psychiatry
DX: F20.0 Paranoid schizophrenia (principal); R45.851 Suicidal ideations; F31.9 Bipolar disorder, unspecified; F12.90 Cannabis use, unspecified, uncomplicated; G47.00 Insomnia, unspecified; Z88.0 Allergy status to penicillin; Z79.899 Other long term (current) drug therapy; Z72.89 Other problems related to lifestyle; Z71.51 Drug abuse counseling and surveillance of drug abuser; Z71.41 Alcohol abuse counseling and surveillance of alcoholic
CPT/HCPCS: G0480; J3535

== ENCOUNTER 2020-03-11 12:22 | Inpatient (IN) | payer MEDICAID ==
[~2020-03-11] VITALS: Ht 175.3 cm; Wt 111.1 kg
[~2020-03-11 12:22] MED LIST changes: -RISP3 PO
[2020-03-11 13:01] VITALS: BP 100/84
[2020-03-11] MEDS ORDERED: HALOPERIDOL 5 MG TABLET PO PRN (13:30)
[2020-03-11] MEDS ORDERED: ZOLPIDEM TARTRATE 10 MG TABLET PO PRN (13:30)
[2020-03-11] MEDS: LORazepam 2 MG TABLET PO PRN (13:56)
[2020-03-11 14:20] VITALS: BP 129/80
[2020-03-11 16:06] VITALS: BP 112/82
[2020-03-12 05:02] VITALS: BP 120/79
[2020-03-12] MEDS ORDERED: DOCUSATE SODIUM 100 MG CAPSULE PO PRN (07:00)
[2020-03-12] MEDS ORDERED: ACETAMINOPHEN 325 MG TABLET PO PRN (07:00)
[2020-03-12] MEDS ORDERED: MAGNESIUM HYDROXIDE SUSPENSION 30 ML UDCUP PO PRN (07:00)
[2020-03-12] MEDS ORDERED: LOPERAMIDE HCL 2 MG CAPSULE PO PRN (07:00)
[2020-03-12] MEDS ORDERED: ALBUTEROL SULFATE HFA 90 MCG/PUFF 8 GM INHALER IH PRN (07:00)
[2020-03-12] MEDS ORDERED: ONDANSETRON HCL 4 MG TABLET PO PRN (07:00)
[2020-03-12] MEDS ORDERED: PETROLATUM,WHITE 28 GM JELLY TP PRN (07:00)
[2020-03-12] MEDS ORDERED: MAG HYDROX/AL HYDROX/SIMETH ES 30 ML SUSPENSION UDCUP PO PRN (07:00)
[2020-03-12] MEDS ORDERED: NICOTINE 14 MG/24 HOUR PATCH TD PRN (07:00)
[2020-03-12] MEDS ORDERED: CloNIDine HCL 0.1 MG TABLET PO PRN (07:00)
[2020-03-12] MEDS ORDERED: GuaiFENesin/D-METHORPHAN [SUGAR-FREE] 200-20MG/10 ML SYRUP UDCUP PO PRN (07:00)
[2020-03-12] MEDS ORDERED: IBUPROFEN 400 MG TABLET PO PRN (07:00)
[2020-03-12 07:57] LABS: BASOPHILS % (AUTO) 0.5 % (0.0-2.0); EOSINOPHILS % (AUTO) 1.7 % (1.0-6.0); HEMOGLOBIN 13.6 g/dL (12.0-16.0); LYMPHOCYTES # (AUTO) 2.7 K/uL (1.0-4.8); LYMPHOCYTES % (AUTO) 35.1 % (22.0-44.0); MEAN CORPUSCULAR HEMOGLOBIN 32.6 pg (26.0-34.0); MEAN CORPUSCULAR HGB CONC 33.9 G/dL (31.0-37.0); MEAN CORPUSCULAR VOLUME 96 fL (80-100); MONOCYTES # (AUTO) 0.4 K/uL (0.1-1.0); MONOCYTES % (AUTO) 5.7 % (2.0-9.0); NEUTROPHILS # (AUTO) 4.4 K/uL (1.8-7.7); PLATELET COUNT (AUTO) 324 K/uL (150-450); RED BLOOD CELL COUNT(AUTO) 4.16 MIL/uL (4.00-5.20); RED CELL DISTRIBUTION WIDTH 14.8 % (11.5-14.5)
[2020-03-12 08:16] LABS: ALANINE AMINOTRANSFERASE 21 U/L (12-78); ALBUMIN 3.3 g/dL (3.4-5.0); ALKALINE PHOSPHATASE 76 U/L (46-116); ANION GAP 9 mmol/L (8-16); ASPARTATE AMINOTRANSFERASE 14 U/L (15-37); BILIRUBIN,TOTAL 0.3 mg/dL (0.1-1.0); CALCIUM, TOTAL 8.7 mg/dL (8.8-10.5); CARBON DIOXIDE 25 mmol/L (22-29); CHLORIDE 103 mmol/L (98-107); CHOL/HDL RATIO 3.5 (3.9-5.7); CHOLESTEROL 172 mg/dL (131-200); CREATININE 0.98 mg/dL (0.60-1.30); GLOMERULAR FILTR. RATE CALC > 60 mL/min (>60); GLUCOSE,RANDOM 91 mg/dL (70-110); HCG,QUANTITATIVE < 1 mIU/mL (0-6); HDL CHOLESTEROL 49 mg/dL (40-60); LDL CHOL (CALC.) 104 mg/dL (0-130); SODIUM SERUM 137 mmol/L (136-145); TRIGLYCERIDES 94 mg/dL (15-150); UREA NITROGEN, BLOOD 18 mg/dL (7-18)
[2020-03-12 08:19] VITALS: BP 120/68
[2020-03-12 16:11] VITALS: BP 125/74
[2020-03-12] MEDS: HALOPERIDOL 10 MG TABLET PO SCH (20:25)
[2020-03-13 00:05] VITALS: BP 120/82
[2020-03-13 08:10] VITALS: BP 108/53
[2020-03-13] MEDS: LORazepam 2 MG TABLET PO PRN (13:00)
[2020-03-13] MEDS: QUEtiapine FUMARATE 100 MG TABLET PO PRN (16:01)
[2020-03-13 16:43] VITALS: BP 114/65
[2020-03-13] MEDS: HALOPERIDOL 10 MG TABLET PO SCH (20:38)
[2020-03-14 05:08] VITALS: BP 120/73
[2020-03-14 08:18] VITALS: BP 118/74
[2020-03-14 08:28] LABS: APPEARANCE,URINE TURBID (CLEAR); BILIRUBIN,URINE NEGATIVE (NEGATIVE); GLUCOSE, URINE (UA) NEGATIVE (NEGATIVE); KETONES,URINE NEGATIVE (NEGATIVE); LEUKOCYTE ESTERASE ,URINE NEGATIVE (NEGATIVE); NITRATE,URINE POSITIVE (NEGATIVE); OCCULT BLOOD,URINE NEGATIVE (NEGATIVE); PROTEIN,URINE NEGATIVE (NEGATIVE); UROBILINOGEN,URINE 0.2 mg/dL (<=1.0)
[2020-03-14 08:34] LABS: AMPHET/METH SCREEN,URINE NEGATIVE (NEGATIVE); BARBITURATE SCREEN, URINE NEGATIVE (NEGATIVE); BENZODIAZEPINES SCREEN,URINE NEGATIVE (NEGATIVE); CANNABINOID SCREEN,URINE NEGATIVE (NEGATIVE); COCAINE SCREEN,URINE NEGATIVE (NEGATIVE); METHADONE SCREEN, URINE NEGATIVE (NEGATIVE); OPIATE SCREEN,URINE NEGATIVE (NEGATIVE)
[2020-03-14 08:35] LABS: PHENCYCLIDINE SCREEN,URINE NEGATIVE (NEGATIVE)
[2020-03-14 08:43] LABS: BACTERIA,URINE Few /HPF (None Seen); RBC,URINE None Seen /HPF (0-2); SQUAMOUS EPITHELIAL CELL,UR Few /LPF (None Seen); WBC,URINE 0-2 /HPF (0-5)
[2020-03-14 08:44] LABS: CALCIUM OXALATE CRYSTALS,UR Few /LPF (None Seen)
[2020-03-14] MEDS: LORazepam 2 MG TABLET PO PRN (14:08)
[2020-03-14 16:09] VITALS: BP 118/73
[2020-03-14] MEDS: CIPROFLOXACIN HCL 500 MG TABLET PO SCH (16:14)
[2020-03-14] MEDS: QUEtiapine FUMARATE 100 MG TABLET PO PRN (17:17)
[2020-03-14] MEDS: HALOPERIDOL 10 MG TABLET PO SCH (20:30)
[2020-03-15 05:52] VITALS: BP 113/78
[2020-03-15] MEDS ORDERED: HALO10 PO (07:56)
[2020-03-15 08:10] VITALS: BP 118/72
[2020-03-15] MEDS: CIPROFLOXACIN HCL 500 MG TABLET PO SCH (08:27)
[2020-03-15] MEDS ORDERED: CIPR-278 PO (10:30)
== END 2020-03-15 10:45 | disposition home or self-care (01) | DRG 885 ==
LOC: B3A 13:32
PROVIDERS: ADMIT Psychiatry & Neurology Child & Adolescent Psychiatry
DX: F20.0 Paranoid schizophrenia (principal); R45.851 Suicidal ideations; Z88.0 Allergy status to penicillin; Z91.5 Personal history of self-harm; F19.10 Other psychoactive substance abuse, uncomplicated; F32.9 Major depressive disorder, single episode, unspecified; M41.9 Scoliosis, unspecified; K30 Functional dyspepsia; K59.00 Constipation, unspecified
CPT/HCPCS: 80307; 83036

== ENCOUNTER 2020-06-12 11:15 | Emergency (ER) | payer OTHER ==
[~2020-06-12] VITALS: Ht 175.3 cm; Wt 109.9 kg
[~2020-06-12 11:15] MED LIST changes: +CIPR-278 PO
[2020-06-12 14:21] LABS: AMPHET/METH SCREEN,URINE POSITIVE (NEGATIVE); BARBITURATE SCREEN, URINE NEGATIVE (NEGATIVE); BENZODIAZEPINES SCREEN,URINE NEGATIVE (NEGATIVE); CANNABINOID SCREEN,URINE NEGATIVE (NEGATIVE); COCAINE SCREEN,URINE NEGATIVE (NEGATIVE); METHADONE SCREEN, URINE NEGATIVE (NEGATIVE); OPIATE SCREEN,URINE NEGATIVE (NEGATIVE); PHENCYCLIDINE SCREEN,URINE NEGATIVE (NEGATIVE)
[2020-06-12 14:59] LABS: BASOPHILS % (AUTO) 0.7 % (0.0-2.0); EOSINOPHILS % (AUTO) 0.5 % (1.0-6.0); HEMATOCRIT 42.1 % (36-46); HEMOGLOBIN 14.2 g/dL (12.0-16.0); LYMPHOCYTES # (AUTO) 2.7 K/uL (1.0-4.8); LYMPHOCYTES % (AUTO) 27.1 % (22.0-44.0); MEAN CORPUSCULAR HEMOGLOBIN 31.7 pg (26.0-34.0); MEAN CORPUSCULAR HGB CONC 33.8 G/dL (31.0-37.0); MEAN CORPUSCULAR VOLUME 94 fL (80-100); MONOCYTES # (AUTO) 0.5 K/uL (0.1-1.0); MONOCYTES % (AUTO) 4.6 % (2.0-9.0); NEUTROPHILS # (AUTO) 6.7 K/uL (1.8-7.7); NEUTROPHILS % (AUTO) 67.1 % (40.0-70.0); PLATELET COUNT (AUTO) 316 K/uL (150-450); RED BLOOD CELL COUNT(AUTO) 4.49 MIL/uL (4.00-5.20); RED CELL DISTRIBUTION WIDTH 13.9 % (11.5-14.5)
[2020-06-12] MEDS ORDERED: DiphenhydrAMINE HCL 50 MG/ML VIAL IM ONE (15:00)
[2020-06-12] MEDS ORDERED: LORazepam 2 MG/ML VIAL IM ONE (15:00)
[2020-06-12] MEDS ORDERED: HALOPERIDOL LACTATE 5 MG/ML VIAL IM ONE (15:00)
[2020-06-12 15:31] LABS: ANION GAP 9 mmol/L (8-16); CALCIUM, TOTAL 8.9 mg/dL (8.8-10.5); CARBON DIOXIDE 29 mmol/L (22-29); CHLORIDE 97 mmol/L (98-107); CREATININE 1.06 mg/dL (0.60-1.30); GLOMERULAR FILTR. RATE CALC 58 mL/min (>60); GLUCOSE,RANDOM 97 mg/dL (70-110); POTASSIUM 4.2 mmol/L (3.5-5.1); SODIUM SERUM 135 mmol/L (136-145); UREA NITROGEN, BLOOD 10 mg/dL (7-18)
[2020-06-12 15:42] LABS: ALANINE AMINOTRANSFERASE 26 U/L (12-78); ALBUMIN 3.8 g/dL (3.4-5.0); ALKALINE PHOSPHATASE 85 U/L (46-116); ASPARTATE AMINOTRANSFERASE 16 U/L (15-37); BILIRUBIN,TOTAL 0.4 mg/dL (0.1-1.0); HCG,QUANTITATIVE < 1 mIU/mL (0-6); TOTAL PROTEIN, SERUM 7.2 g/dL (6.4-8.2)
[2020-06-12 19:47] VITALS: BP 100/60
== END 2020-06-12 20:08 | disposition home or self-care (01) ==
LOC: EDUNIT# 11:15 → EMS 11:40 → EEVIPCON 11:40 → EMS 20:08
DX: F20.0 Paranoid schizophrenia (principal); F31.9 Bipolar disorder, unspecified; F15.10 Other stimulant abuse, uncomplicated; F17.210 Nicotine dependence, cigarettes, uncomplicated; Z88.0 Allergy status to penicillin
CPT/HCPCS: 36415; 80053; 80307; 84702; 85025; 96372; 99285; 99406; G0480; J1200; J1630; J2060

== ENCOUNTER 2020-07-12 10:17 | Inpatient (IN) | payer MEDICAID, OTHER ==
[~2020-07-12] VITALS: Ht 175.3 cm; Wt 110.2 kg
[~2020-07-12 10:17] MED LIST changes: -CIPR-278 PO
[2020-07-12 11:07] LABS: EOSINOPHILS % (AUTO) 0.5 % (1.0-6.0); HEMATOCRIT 41.9 % (36-46); HEMOGLOBIN 14.7 g/dL (12.0-16.0); LYMPHOCYTES # (AUTO) 2.8 K/uL (1.0-4.8); LYMPHOCYTES % (AUTO) 31.9 % (22.0-44.0); MEAN CORPUSCULAR HEMOGLOBIN 32.9 pg (26.0-34.0); MEAN CORPUSCULAR VOLUME 94 fL (80-100); MONOCYTES # (AUTO) 0.4 K/uL (0.1-1.0); MONOCYTES % (AUTO) 4.6 % (2.0-9.0); NEUTROPHILS # (AUTO) 5.4 K/uL (1.8-7.7); PLATELET COUNT (AUTO) 301 K/uL (150-450); RED BLOOD CELL COUNT(AUTO) 4.46 MIL/uL (4.00-5.20); RED CELL DISTRIBUTION WIDTH 13.6 % (11.5-14.5)
[2020-07-12 11:16] LABS: ANION GAP 8 mmol/L (8-16); CARBON DIOXIDE 27 mmol/L (22-29); CHLORIDE 102 mmol/L (98-107); CREATININE 0.96 mg/dL (0.60-1.30); GLOMERULAR FILTR. RATE CALC > 60 mL/min (>60); GLUCOSE,RANDOM 88 mg/dL (70-110); POTASSIUM 4.3 mmol/L (3.5-5.1); SODIUM SERUM 137 mmol/L (136-145); UREA NITROGEN, BLOOD 10 mg/dL (7-18)
[2020-07-12 11:27] LABS: ALANINE AMINOTRANSFERASE 30 U/L (12-78); ALBUMIN 3.8 g/dL (3.4-5.0); ALKALINE PHOSPHATASE 87 U/L (46-116); ASPARTATE AMINOTRANSFERASE 28 U/L (15-37); BILIRUBIN,TOTAL 0.4 mg/dL (0.1-1.0); HCG,QUANTITATIVE < 1 mIU/mL (0-6); TOTAL PROTEIN, SERUM 7.7 g/dL (6.4-8.2)
[2020-07-12] MEDS ORDERED: LORazepam 1 MG TABLET PO ONE (12:45)
[2020-07-12] MEDS ORDERED: HALOPERIDOL 5 MG TABLET PO ONE (13:15)
[2020-07-12 13:47] LABS: COVID AG,FIA SOURCE NASOPHARYNGEAL
[2020-07-12] MEDS: LORazepam 2 MG TABLET PO PRN (17:46)
[2020-07-12] MEDS: HALOPERIDOL 5 MG TABLET PO PRN (17:47)
[2020-07-12 20:16] VITALS: BP 115/67
[2020-07-12] MEDS: ZOLPIDEM TARTRATE 10 MG TABLET PO PRN (20:17)
[2020-07-12] MEDS ORDERED: INFLUENZA VIRUS VACCINE QVS 2020-21 (6MO+)/PF 60 MCG/0.5 ML SYRINGE IM ONE (22:00)
[2020-07-13 01:19] VITALS: BP 116/71
[2020-07-13] MEDS ORDERED: ALBUTEROL SULFATE HFA 90 MCG/PUFF 8 GM INHALER IH PRN (07:15)
[2020-07-13] MEDS ORDERED: CloNIDine HCL 0.1 MG TABLET PO PRN (07:15)
[2020-07-13] MEDS ORDERED: PETROLATUM,WHITE 28 GM JELLY TP PRN (07:15)
[2020-07-13] MEDS ORDERED: MAGNESIUM HYDROXIDE SUSPENSION 30 ML UDCUP PO PRN (07:15)
[2020-07-13] MEDS ORDERED: NICOTINE 14 MG/24 HOUR PATCH TD PRN (07:15)
[2020-07-13] MEDS ORDERED: ONDANSETRON HCL 4 MG TABLET PO PRN (07:15)
[2020-07-13] MEDS ORDERED: MAG HYDROX/AL HYDROX/SIMETH ES 30 ML SUSPENSION UDCUP PO PRN (07:15)
[2020-07-13] MEDS ORDERED: DOCUSATE SODIUM 100 MG CAPSULE PO PRN (07:15)
[2020-07-13] MEDS ORDERED: LOPERAMIDE HCL 2 MG CAPSULE PO PRN (07:15)
[2020-07-13] MEDS ORDERED: IBUPROFEN 400 MG TABLET PO PRN (07:15)
[2020-07-13] MEDS ORDERED: GuaiFENesin/D-METHORPHAN [SUGAR-FREE] 200-20MG/10 ML SYRUP UDCUP PO PRN (07:15)
[2020-07-13] MEDS ORDERED: ACETAMINOPHEN 325 MG TABLET PO PRN (07:15)
[2020-07-13 08:07] VITALS: BP 107/70
[2020-07-13] MEDS: LORazepam 2 MG TABLET PO PRN (14:18)
[2020-07-13 16:13] VITALS: BP 121/78
[2020-07-13] MEDS: RisperiDONE 3 MG TABLET PO SCH (17:11)
[2020-07-14 04:20] VITALS: BP 113/66
[2020-07-14] MEDS: RisperiDONE 3 MG TABLET PO SCH ×2 (08:16→16:11)
[2020-07-14] MEDS: HALOPERIDOL 5 MG TABLET PO PRN (13:23)
[2020-07-14] MEDS: LORazepam 2 MG TABLET PO PRN (13:23)
[2020-07-14 16:18] VITALS: BP 117/74
[2020-07-14] MEDS: ZOLPIDEM TARTRATE 10 MG TABLET PO PRN (20:04)
[2020-07-14] MEDS ORDERED: RisperiDONE MICROSPHERES 50 MG/2 ML SYRINGE IM SCH (20:15)
[2020-07-15 01:25] VITALS: BP 111/70
[2020-07-15] MEDS: HALOPERIDOL 5 MG TABLET PO PRN (08:10)
[2020-07-15] MEDS: LORazepam 2 MG TABLET PO PRN (08:10)
[2020-07-15] MEDS: RisperiDONE 3 MG TABLET PO SCH (08:11)
[2020-07-15 08:18] VITALS: BP 132/78
[2020-07-15] MEDS ORDERED: RISP3TAB35 PO (12:27)
[2020-07-15] MEDS ORDERED: RISPC50 IM (12:30)
== END 2020-07-15 13:05 | disposition home or self-care (01) | DRG 750 ==
LOC: EDUNIT# 10:17 → EMS 10:24 → B3A 16:32 → UNDOADMIN 18:01 → B3A 18:01
PROVIDERS: ADMIT Psychiatry & Neurology Psychiatry; ATTEND Psychiatry & Neurology Psychiatry
DX: F20.0 Paranoid schizophrenia (principal); R45.851 Suicidal ideations; F17.200 Nicotine dependence, unspecified, uncomplicated; M41.9 Scoliosis, unspecified; F31.9 Bipolar disorder, unspecified; F15.90 Other stimulant use, unspecified, uncomplicated; F41.9 Anxiety disorder, unspecified; Z03.818 Encounter for observation for suspected exposure to other biological agents ruled out
CPT/HCPCS: 87426; 90686; G0480; J2794

== ENCOUNTER 2020-07-25 16:14 | Inpatient (IN) | payer MEDICAID, OTHER ==
[~2020-07-25] VITALS: Ht 175.3 cm; Wt 111.6 kg
[~2020-07-25 16:14] MED LIST changes: -HALO10 PO; +RISP3TAB35 PO; +RISPC50 IM
[2020-07-25 17:03] LABS: BASOPHILS % (AUTO) 0.8 % (0.0-2.0); HEMATOCRIT 40.7 % (36-46); HEMOGLOBIN 14.2 g/dL (12.0-16.0); LYMPHOCYTES # (AUTO) 2.8 K/uL (1.0-4.8); LYMPHOCYTES % (AUTO) 28.9 % (22.0-44.0); MEAN CORPUSCULAR HGB CONC 34.8 G/dL (31.0-37.0); MEAN CORPUSCULAR VOLUME 95 fL (80-100); MONOCYTES # (AUTO) 0.5 K/uL (0.1-1.0); MONOCYTES % (AUTO) 4.8 % (2.0-9.0); NEUTROPHILS # (AUTO) 6.2 K/uL (1.8-7.7); NEUTROPHILS % (AUTO) 64.5 % (40.0-70.0); PLATELET COUNT (AUTO) 299 K/uL (150-450); RED CELL DISTRIBUTION WIDTH 13.5 % (11.5-14.5)
[2020-07-25 17:14] LABS: ANION GAP 6 mmol/L (8-16); CALCIUM, TOTAL 9.7 mg/dL (8.8-10.5); CARBON DIOXIDE 28 mmol/L (22-29); CHLORIDE 103 mmol/L (98-107); CREATININE 1.02 mg/dL (0.60-1.30); GLOMERULAR FILTR. RATE CALC 60 mL/min (>60); GLUCOSE,RANDOM 97 mg/dL (70-110); POTASSIUM 3.9 mmol/L (3.5-5.1); SODIUM SERUM 137 mmol/L (136-145); UREA NITROGEN, BLOOD 13 mg/dL (7-18)
[2020-07-25 17:28] LABS: ALANINE AMINOTRANSFERASE 21 U/L (12-78); ALBUMIN 3.4 g/dL (3.4-5.0); ALKALINE PHOSPHATASE 94 U/L (46-116); ASPARTATE AMINOTRANSFERASE 13 U/L (15-37); BILIRUBIN,TOTAL 0.2 mg/dL (0.1-1.0); HCG,QUANTITATIVE < 1 mIU/mL (0-6); TOTAL PROTEIN, SERUM 7.2 g/dL (6.4-8.2)
[2020-07-25 18:04] LABS: COVID AG,FIA SOURCE NASOPHARYNGEAL
[2020-07-26] MEDS ORDERED: PNEUMOCOCCAL VACCINE POLYVALENT 0.5 ML VIAL [PPSV23] IM ONE (01:15)
[2020-07-26] MEDS ORDERED: -PHARMACY VACCINE NOTE- MISC ONE (01:15)
[2020-07-26] MEDS ORDERED: INFLUENZA VIRUS VACCINE QVS 2020-21 (6MO+)/PF 60 MCG/0.5 ML SYRINGE IM ONE (01:15)
[2020-07-26] MEDS: HALOPERIDOL 5 MG TABLET PO PRN ×2 (03:34→13:29)
[2020-07-26] MEDS: LORazepam 2 MG TABLET PO PRN ×2 (03:34→13:29)
[2020-07-26 03:51] VITALS: BP 135/84
[2020-07-26] MEDS ORDERED: GuaiFENesin/D-METHORPHAN [SUGAR-FREE] 200-20MG/10 ML SYRUP UDCUP PO PRN (07:00)
[2020-07-26] MEDS ORDERED: ACETAMINOPHEN 325 MG TABLET PO PRN (07:00)
[2020-07-26] MEDS ORDERED: LOPERAMIDE HCL 2 MG CAPSULE PO PRN (07:00)
[2020-07-26] MEDS ORDERED: DOCUSATE SODIUM 100 MG CAPSULE PO PRN (07:00)
[2020-07-26] MEDS ORDERED: ONDANSETRON HCL 4 MG TABLET PO PRN (07:00)
[2020-07-26] MEDS ORDERED: IBUPROFEN 400 MG TABLET PO PRN (07:00)
[2020-07-26] MEDS ORDERED: ALBUTEROL SULFATE HFA 90 MCG/PUFF 8 GM INHALER IH PRN (07:00)
[2020-07-26] MEDS ORDERED: PETROLATUM,WHITE 28 GM JELLY TP PRN (07:00)
[2020-07-26] MEDS ORDERED: CloNIDine HCL 0.1 MG TABLET PO PRN (07:00)
[2020-07-26] MEDS ORDERED: MAG HYDROX/AL HYDROX/SIMETH ES 30 ML SUSPENSION UDCUP PO PRN (07:00)
[2020-07-26] MEDS ORDERED: MAGNESIUM HYDROXIDE SUSPENSION 30 ML UDCUP PO PRN (07:00)
[2020-07-26 08:11] VITALS: BP 111/74
[2020-07-26 08:21] LABS: CHOL/HDL RATIO 3.4 (3.9-5.7)
[2020-07-26 16:22] VITALS: BP 114/68
[2020-07-27 00:33] VITALS: BP 112/72
[2020-07-27] MEDS ORDERED: RisperiDONE MICROSPHERES 50 MG/2 ML SYRINGE IM SCH (09:00)
[2020-07-27] MEDS: HALOPERIDOL 5 MG TABLET PO PRN (14:11)
[2020-07-27] MEDS: LORazepam 2 MG TABLET PO PRN (16:27)
[2020-07-28] MEDS: ZOLPIDEM TARTRATE 10 MG TABLET PO PRN (00:09)
[2020-07-28 01:57] VITALS: BP 102/72
[2020-07-28 08:12] VITALS: BP 119/84
[2020-07-28] MEDS: LORazepam 2 MG TABLET PO PRN ×2 (10:54→16:23)
[2020-07-28] MEDS: HALOPERIDOL 5 MG TABLET PO PRN (10:55)
[2020-07-28] MEDS: NICOTINE 14 MG/24 HOUR PATCH TD PRN (15:10)
[2020-07-28 16:15] VITALS: BP 126/84
[2020-07-29 00:42] VITALS: BP 120/79
[2020-07-29] MEDS: LORazepam 2 MG TABLET PO PRN ×3 (03:19→16:50)
[2020-07-29 08:24] VITALS: BP 119/69
[2020-07-29] MEDS: NICOTINE 14 MG/24 HOUR PATCH TD PRN (10:22)
[2020-07-29 16:31] VITALS: BP 120/64
[2020-07-30] MEDS: ZOLPIDEM TARTRATE 10 MG TABLET PO PRN (00:26)
[2020-07-30 01:11] VITALS: BP 118/65
[2020-07-30 08:27] VITALS: BP 122/83
[2020-07-30] MEDS: HALOPERIDOL 5 MG TABLET PO PRN (08:43)
[2020-07-30] MEDS: LORazepam 2 MG TABLET PO PRN (08:43)
== END 2020-07-30 11:05 | disposition home or self-care (01) | DRG 750 ==
LOC: EMS 16:19 → B3A 20:52
PROVIDERS: ADMIT Psychiatry & Neurology Psychiatry; ATTEND Psychiatry & Neurology Psychiatry
DX: F20.0 Paranoid schizophrenia (principal); R45.851 Suicidal ideations; F12.90 Cannabis use, unspecified, uncomplicated; F15.90 Other stimulant use, unspecified, uncomplicated; G93.40 Encephalopathy, unspecified; F19.10 Other psychoactive substance abuse, uncomplicated; F32.9 Major depressive disorder, single episode, unspecified; F41.9 Anxiety disorder, unspecified; M41.9 Scoliosis, unspecified; K59.00 Constipation, unspecified; G47.00 Insomnia, unspecified; F17.210 Nicotine dependence, cigarettes, uncomplicated; Z88.0 Allergy status to penicillin; F43.10 Post-traumatic stress disorder, unspecified; Z03.818 Encounter for observation for suspected exposure to other biological agents ruled out
CPT/HCPCS: 87081; 87426; G0480; J2794

== ENCOUNTER 2020-09-14 15:27 | Emergency (ER) | payer MEDICAID, OTHER ==
[~2020-09-14] VITALS: Ht 175.3 cm; Wt 113.6 kg
[~2020-09-14 15:27] MED LIST changes: -RISP3TAB35 PO
[2020-09-14 16:18] LABS: APPEARANCE,URINE CLEAR (CLEAR); BILIRUBIN,URINE NEGATIVE (NEGATIVE); GLUCOSE, URINE (UA) NEGATIVE (NEGATIVE); KETONES,URINE TRACE mg/dL (NEGATIVE); LEUKOCYTE ESTERASE ,URINE NEGATIVE (NEGATIVE); NITRATE,URINE NEGATIVE (NEGATIVE); OCCULT BLOOD,URINE NEGATIVE (NEGATIVE); PROTEIN,URINE NEGATIVE (NEGATIVE); UROBILINOGEN,URINE 0.2 mg/dL (<=1.0)
[2020-09-14 16:24] LABS: AMPHET/METH SCREEN,URINE POSITIVE (NEGATIVE); BARBITURATE SCREEN, URINE NEGATIVE (NEGATIVE); BENZODIAZEPINES SCREEN,URINE NEGATIVE (NEGATIVE); CANNABINOID SCREEN,URINE NEGATIVE (NEGATIVE); COCAINE SCREEN,URINE NEGATIVE (NEGATIVE); METHADONE SCREEN, URINE NEGATIVE (NEGATIVE); OPIATE SCREEN,URINE NEGATIVE (NEGATIVE); PHENCYCLIDINE SCREEN,URINE NEGATIVE (NEGATIVE)
[2020-09-14 16:54] LABS: BASOPHILS % (AUTO) 0.5 % (0.0-2.0); EOSINOPHILS % (AUTO) 1.3 % (1.0-6.0); HEMATOCRIT 39.9 % (36-46); HEMOGLOBIN 13.3 g/dL (12.0-16.0); LYMPHOCYTES # (AUTO) 2.6 K/uL (1.0-4.8); LYMPHOCYTES % (AUTO) 33.7 % (22.0-44.0); MEAN CORPUSCULAR HEMOGLOBIN 31.9 pg (26.0-34.0); MEAN CORPUSCULAR HGB CONC 33.4 G/dL (31.0-37.0); MEAN CORPUSCULAR VOLUME 95 fL (80-100); MONOCYTES # (AUTO) 0.4 K/uL (0.1-1.0); MONOCYTES % (AUTO) 4.6 % (2.0-9.0); NEUTROPHILS # (AUTO) 4.6 K/uL (1.8-7.7); NEUTROPHILS % (AUTO) 59.9 % (40.0-70.0); PLATELET COUNT (AUTO) 315 K/uL (150-450); RED BLOOD CELL COUNT(AUTO) 4.19 MIL/uL (4.00-5.20); RED CELL DISTRIBUTION WIDTH 13.5 % (11.5-14.5)
[2020-09-14] MEDS ORDERED: HydrOXYzine PAMOATE 25 MG CAPSULE PO ONE (17:00)
[2020-09-14 17:05] LABS: ANION GAP 7 mmol/L (8-16); CALCIUM, TOTAL 8.6 mg/dL (8.8-10.5); CARBON DIOXIDE 26 mmol/L (22-29); CHLORIDE 103 mmol/L (98-107); CREATININE 0.99 mg/dL (0.60-1.30); GLOMERULAR FILTR. RATE CALC > 60 mL/min (>60); GLUCOSE,RANDOM 88 mg/dL (70-110); POTASSIUM 4.2 mmol/L (3.5-5.1); SODIUM SERUM 136 mmol/L (136-145); UREA NITROGEN, BLOOD 7 mg/dL (7-18)
[2020-09-14 17:11] LABS: ALANINE AMINOTRANSFERASE 29 U/L (12-78); ALBUMIN 3.5 g/dL (3.4-5.0); ALKALINE PHOSPHATASE 88 U/L (46-116); ASPARTATE AMINOTRANSFERASE 17 U/L (15-37); BILIRUBIN,TOTAL 0.4 mg/dL (0.1-1.0); TOTAL PROTEIN, SERUM 7.3 g/dL (6.4-8.2)
[2020-09-14 20:01] VITALS: BP 120/80
== END 2020-09-14 20:48 | disposition home or self-care (01) ==
LOC: EMS 15:31
DX: F25.9 Schizoaffective disorder, unspecified (principal); F15.10 Other stimulant abuse, uncomplicated; F17.210 Nicotine dependence, cigarettes, uncomplicated; F31.9 Bipolar disorder, unspecified; F12.90 Cannabis use, unspecified, uncomplicated; Z88.0 Allergy status to penicillin
CPT/HCPCS: 36415; 80053; 80307; 81003; 85025; 99285; 99406; G0480

== ENCOUNTER 2021-05-26 13:40 | Inpatient (IN) | payer MEDICAID, OTHER ==
[~2021-05-26] VITALS: Ht 170.2 cm; Wt 102.2 kg
[2021-05-26 14:39] LABS: BASOPHILS % (AUTO) 0.6 % (0.0-2.0); EOSINOPHILS % (AUTO) 1.6 % (1.0-6.0); HEMATOCRIT 43.1 % (36-46); HEMOGLOBIN 14.1 g/dL (12.0-16.0); LYMPHOCYTES # (AUTO) 3.3 K/uL (1.0-4.8); LYMPHOCYTES % (AUTO) 31.5 % (22.0-44.0); MEAN CORPUSCULAR HEMOGLOBIN 31.2 pg (26.0-34.0); MEAN CORPUSCULAR HGB CONC 32.8 G/dL (31.0-37.0); MEAN CORPUSCULAR VOLUME 95 fL (80-100); MONOCYTES # (AUTO) 0.5 K/uL (0.1-1.0); MONOCYTES % (AUTO) 4.7 % (2.0-9.0); NEUTROPHILS # (AUTO) 6.4 K/uL (1.8-7.7); NEUTROPHILS % (AUTO) 61.6 % (40.0-70.0); PLATELET COUNT (AUTO) 365 K/uL (150-450); RED BLOOD CELL COUNT(AUTO) 4.53 MIL/uL (4.00-5.20); RED CELL DISTRIBUTION WIDTH 14.4 % (11.5-14.5)
[2021-05-26 15:10] LABS: ANION GAP 10 mmol/L (8-16); CALCIUM, TOTAL 9.1 mg/dL (8.8-10.5); CARBON DIOXIDE 24 mmol/L (22-29); CHLORIDE 105 mmol/L (98-107); CREATININE 1.09 mg/dL (0.60-1.30); GLOMERULAR FILTR. RATE CALC 56 mL/min (>60); GLUCOSE,RANDOM 94 mg/dL (70-110); POTASSIUM 3.6 mmol/L (3.5-5.1); SODIUM SERUM 139 mmol/L (136-145); UREA NITROGEN, BLOOD 7 mg/dL (7-18)
[2021-05-26 15:25] LABS: ALANINE AMINOTRANSFERASE 29 U/L (12-78); ALBUMIN 3.7 g/dL (3.4-5.0); ALKALINE PHOSPHATASE 113 U/L (46-116); ASPARTATE AMINOTRANSFERASE 18 U/L (15-37); BILIRUBIN,TOTAL 0.2 mg/dL (0.1-1.0); HCG,QUANTITATIVE < 1 mIU/mL (0-6); TOTAL PROTEIN, SERUM 7.8 g/dL (6.4-8.2)
[2021-05-26] MEDS ORDERED: HALOPERIDOL 5 MG TABLET PO PRN (16:00)
[2021-05-26] MEDS ORDERED: ZOLPIDEM TARTRATE 10 MG TABLET PO PRN (16:00)
[2021-05-26] MEDS ORDERED: RisperiDONE MICROSPHERES 50 MG/2 ML SYRINGE IM ONE (16:00)
[2021-05-26 16:09] LABS: COVID AG,FIA SOURCE NASOPHARYNGEAL
[2021-05-26 20:30] VITALS: BP 129/79
[2021-05-26] MEDS ORDERED: PNEUMOCOCCAL VACCINE POLYVALENT 0.5 ML VIAL [PPSV23] IM. ONE (21:45)
[2021-05-27 00:27] VITALS: BP 130/76
[2021-05-27] MEDS ORDERED: DOCUSATE SODIUM 100 MG CAPSULE PO PRN (06:45)
[2021-05-27] MEDS ORDERED: CloNIDine HCL 0.1 MG TABLET PO PRN (06:45)
[2021-05-27] MEDS ORDERED: LOPERAMIDE HCL 2 MG CAPSULE PO PRN (06:45)
[2021-05-27] MEDS ORDERED: BACITRACIN 28 GM OINTMENT TP PRN (06:45)
[2021-05-27] MEDS ORDERED: PETROLATUM,WHITE 28 GM JELLY TP PRN (06:45)
[2021-05-27] MEDS ORDERED: MAG HYDROX/AL HYDROX/SIMETH ES 30 ML SUSPENSION UDCUP PO PRN (06:45)
[2021-05-27] MEDS ORDERED: ONDANSETRON HCL 4 MG TABLET PO PRN (06:45)
[2021-05-27] MEDS ORDERED: ALBUTEROL SULFATE HFA 90 MCG/PUFF 8 GM INHALER IH PRN (06:45)
[2021-05-27] MEDS ORDERED: OMEPRAZOLE 20 MG CAPSULE PO PRN (06:45)
[2021-05-27] MEDS ORDERED: IBUPROFEN 600 MG TABLET PO PRN (06:45)
[2021-05-27] MEDS ORDERED: MAGNESIUM HYDROXIDE SUSPENSION 30 ML UDCUP PO PRN (06:45)
[2021-05-27] MEDS ORDERED: BENZOCAINE/MENTHOL LOZENGE PO PRN (06:45)
[2021-05-27] MEDS ORDERED: ACETAMINOPHEN 325 MG TABLET PO PRN (06:45)
[2021-05-27 07:28] LABS: CHOL/HDL RATIO 4.1 (3.9-5.7); FREE T4 (FREE THYROXINE) 1.09 ng/dL (0.76-1.46); THYROID STIMULATING HORMONE 1.02 uIU/mL (0.36-3.74)
[2021-05-27 08:05] VITALS: BP 103/63
[2021-05-27] MEDS: LORazepam 2 MG TABLET PO PRN (08:43)
[2021-05-27 16:12] VITALS: BP 140/79
[2021-05-28 00:52] VITALS: BP 118/78
[2021-05-28 08:04] VITALS: BP 124/84
[2021-05-28] MEDS: LORazepam 2 MG TABLET PO PRN (13:11)
[2021-05-28 16:01] VITALS: BP 100/72
[2021-05-29 00:55] VITALS: BP 104/65
[2021-05-29 08:15] VITALS: BP 116/75
[2021-05-29 16:07] VITALS: BP 125/74
[2021-05-29] MEDS: LORazepam 2 MG TABLET PO PRN (19:09)
[2021-05-30 00:15] VITALS: BP 123/76
[2021-05-30 08:04] VITALS: BP 132/77
[2021-05-30] MEDS: LORazepam 2 MG TABLET PO PRN (12:36)
[2021-05-30 16:08] VITALS: BP 104/75
[2021-05-31 00:15] VITALS: BP 109/71
[2021-05-31 08:02] LABS: COVID AG,FIA SOURCE NASOPHARYNGEAL
[2021-05-31 08:04] VITALS: BP 116/66
[2021-05-31] MEDS: LORazepam 2 MG TABLET PO PRN (13:36)
[2021-05-31 16:01] VITALS: BP 102/64
[2021-06-01 00:14] VITALS: BP 109/73
[2021-06-01 08:04] VITALS: BP 108/63
== END 2021-06-01 14:44 | disposition home or self-care (01) | DRG 750 ==
LOC: EMS 13:40 → B2S 19:00
PROVIDERS: ADMIT Psychiatry & Neurology Psychiatry; ATTEND Psychiatry & Neurology Psychiatry
DX: F25.9 Schizoaffective disorder, unspecified (principal); F31.9 Bipolar disorder, unspecified; F43.10 Post-traumatic stress disorder, unspecified; M41.9 Scoliosis, unspecified; Z20.822 Contact with and (suspected) exposure to COVID-19; G47.00 Insomnia, unspecified; K59.00 Constipation, unspecified; F41.9 Anxiety disorder, unspecified; Z87.891 Personal history of nicotine dependence; Z88.0 Allergy status to penicillin; Z79.899 Other long term (current) drug therapy
CPT/HCPCS: 80053; 80061; 84439; 84443; 84702; 85025; 99285; G0480; J2794

== ENCOUNTER 2024-04-09 22:18 | Inpatient (IN) | payer MEDICAID, OTHER ==
[~2024-04-09] VITALS: Ht 170.2 cm; Wt 95.9 kg
[2024-04-09] MEDS ORDERED: DiphenhydrAMINE HCL 50 MG/ML VIAL ONE (23:00)
[2024-04-09] MEDS ORDERED: HALOPERIDOL LACTATE 5 MG/ML VIAL ONE (23:00)
[2024-04-09] MEDS ORDERED: LORazepam 2 MG/ML VIAL ONE (23:00)
[2024-04-09 23:05] LABS: COVID AG,FIA SOURCE NASAL SWAB
[2024-04-09] MEDS: DiphenhydrAMINE HCL 50 MG/ML VIAL IM ONE (23:05)
[2024-04-09] MEDS: LORazepam 2 MG/ML VIAL IM ONE (23:05)
[2024-04-09] MEDS: HALOPERIDOL LACTATE 5 MG/ML VIAL IM ONE (23:05)
[2024-04-09 23:25] LABS: SARS-COV2 (COVID) ANTIGEN,FIA Negative (Negative)
[2024-04-09 23:35] LABS: BASOPHILS % (AUTO) 0.7 % (0.0-2.0); EOSINOPHILS % (AUTO) 2.3 % (1.0-6.0); HEMOGLOBIN 12.8 g/dL (12.0-16.0); LYMPHOCYTES # (AUTO) 2.8 K/uL (1.0-4.8); LYMPHOCYTES % (AUTO) 32.6 % (22.0-44.0); MEAN CORPUSCULAR HEMOGLOBIN 32.3 pg (26.0-34.0); MEAN CORPUSCULAR HGB CONC 33.7 G/dL (31.0-37.0); MEAN CORPUSCULAR VOLUME 96 fL (80-100); MONOCYTES # (AUTO) 0.4 K/uL (0.1-1.0); MONOCYTES % (AUTO) 4.9 % (2.0-9.0); NEUTROPHILS # (AUTO) 5.2 K/uL (1.8-7.7); NEUTROPHILS % (AUTO) 59.5 % (40.0-70.0); PLATELET COUNT (AUTO) 349 K/uL (150-450); RED BLOOD CELL COUNT(AUTO) 3.97 MIL/uL (4.00-5.20); RED CELL DISTRIBUTION WIDTH 14.3 % (11.5-14.5); WHITE BLOOD COUNT (AUTO) 8.7 K/uL (4.5-11.0)
[2024-04-10] LABS: CALCIUM, TOTAL 9.1 mg/dL (8.8-10.5); CREATININE 1.06 mg/dL (0.60-1.30); POTASSIUM 3.5 mmol/L (3.5-5.1)
[2024-04-10] MEDS ORDERED: QUEtiapine FUMARATE 100 MG TABLET PO PRN (00:30)
[2024-04-10] MEDS ORDERED: LORazepam 2 MG TABLET PO PRN (00:30)
[2024-04-10] MEDS ORDERED: ZOLPIDEM TARTRATE 10 MG TABLET PO PRN (00:30)
[2024-04-10 03:14] VITALS: BP 109/77; PULSE 87; RESP 18; TEMP 96.7; O2SAT 100
[2024-04-10 09:29] VITALS: BP 100/64; PULSE 70; RESP 18; TEMP 97.6; O2SAT 96
[2024-04-10] MEDS ORDERED: GuaiFENesin/D-METHORPHAN [SUGAR-FREE] 200-20MG/10 ML SYRUP UDCUP PO PRN (16:30)
[2024-04-10] MEDS ORDERED: LOPERAMIDE HCL 2 MG CAPSULE PO PRN (16:30)
[2024-04-10] MEDS ORDERED: RisperiDONE 3 MG TABLET PO PRN (16:30)
[2024-04-10] MEDS ORDERED: HydrOXYzine PAMOATE 50 MG CAPSULE PO PRN (16:30)
[2024-04-10] MEDS ORDERED: CYANOCOBALAMIN 1,000 MCG/ML VIAL IM ONE (16:30)
[2024-04-10] MEDS: RisperiDONE 3 MG TABLET PO ONE (17:18)
[2024-04-10] MEDS: THIAMINE 100 MG TABLET PO SCH (17:18)
[2024-04-10] MEDS: MELATONIN 3 MG TABLET PO SCH (20:18)
[2024-04-10] MEDS: OLANZapine 5 MG RAPDIS TABLET PO SCH (20:18)
[2024-04-10 20:37] VITALS: BP 130/79; PULSE 64; RESP 18; TEMP 97.2; O2SAT 100
[2024-04-11 00:30] VITALS: BP 91/58; PULSE 69; RESP 18; TEMP 97.7; O2SAT 98
[2024-04-11] MEDS: NALTREXONE HCL 50 MG TABLET PO SCH (08:32)
[2024-04-11] MEDS: FLUoxetine HCL 20 MG CAPSULE PO SCH (08:32)
[2024-04-11] MEDS: MULTIVITAMINS WITH MINERALS, THERAPEUTIC TABLET PO SCH (08:32)
[2024-04-11] MEDS: FOLIC ACID 1 MG TABLET PO SCH (08:32)
[2024-04-11 09:26] VITALS: BP 94/55; PULSE 71; RESP 17; TEMP 98; O2SAT 97
[2024-04-11 09:34] VITALS: BP 94/55; PULSE 62; RESP 17; TEMP 98; O2SAT 99
[2024-04-11 20:25] VITALS: BP 116/73; PULSE 100; RESP 18; TEMP 97.4; O2SAT 97
[2024-04-12 08:13] VITALS: BP 103/61; PULSE 62; RESP 20; TEMP 97.3; O2SAT 98
[2024-04-12] MEDS: RisperiDONE 3 MG TABLET PO SCH (16:08)
[2024-04-12 20:20] VITALS: BP 100/60; PULSE 75; RESP 18; TEMP 97.5; O2SAT 97
[2024-04-12] MEDS: BENZTROPINE MESYLATE 2 MG TABLET PO SCH (21:21)
[2024-04-13 08:22] VITALS: BP 93/60; PULSE 66; RESP 15; TEMP 97.7; O2SAT 97
[2024-04-13 20:00] VITALS: BP 97/62; PULSE 67; RESP 16; TEMP 97.8; O2SAT 98
[2024-04-14 08:19] VITALS: BP 100/60; PULSE 86; RESP 16; TEMP 97; O2SAT 97
[2024-04-14] MEDS ORDERED: RISP3TAB77 PO (10:28)
[2024-04-14] MEDS ORDERED: BENZ2TAB84 PO (10:30)
[2024-04-14] MEDS ORDERED: NALT50TA33 PO (10:31)
== END 2024-04-14 12:20 | disposition home or self-care (01) | DRG 750 ==
LOC: EMS 22:18 → B3A 04-10 02:09
PROVIDERS: ADMIT Psychiatry & Neurology Psychiatry; ATTEND Psychiatry & Neurology Psychiatry
DX: F20.9 Schizophrenia, unspecified (principal); R45.851 Suicidal ideations; Z91.148 Patient's other noncompliance with medication regimen for other reason; F31.9 Bipolar disorder, unspecified; F17.210 Nicotine dependence, cigarettes, uncomplicated; M41.9 Scoliosis, unspecified; F41.9 Anxiety disorder, unspecified; F43.10 Post-traumatic stress disorder, unspecified; M54.9 Dorsalgia, unspecified; E78.5 Hyperlipidemia, unspecified; F15.10 Other stimulant abuse, uncomplicated; F12.10 Cannabis abuse, uncomplicated; Z88.0 Allergy status to penicillin; Z55.9 Problems related to education and literacy, unspecified; Z59.9 Problem related to housing and economic circumstances, unspecified; Z63.9 Problem related to primary support group, unspecified; Z65.3 Problems related to other legal circumstances
CPT/HCPCS: 80048; 85025; 99285; J1200; J1630; J2060